=== PATIENT | male | born 1955 | race Caucasian/White ===

== ENCOUNTER 2017-10-10 12:41 | Inpatient (IN) | payer OTHER ==
[2017-10-10] MEDS ORDERED: Ondansetron INJ* 2 MG/ML VIAL ONE (12:52)
[2017-10-10] MEDS ORDERED: Ticagrelor* 90 MG TAB PO ONE ×2 (12:56→13:04)
[2017-10-10] MEDS ORDERED: Nitroglycerin TAB 0.4 MG* 0.4 MG TAB ONE (12:56)
[2017-10-10] MEDS ORDERED: Heparin for STEMI(*) 5,000 UNITS/ML 1 ML VIAL IV ONE ×2 (12:56→12:58)
[2017-10-10] MEDS ORDERED: Aspirin Low Dose CHEW TAB* 81 MG ONE (12:56)
[2017-10-10] MEDS ORDERED: nitroGLYCERIN DRIP* 0 MCG/0 ML BTL ONE (12:57)
[2017-10-10] MEDS ORDERED: NS 0.9% 1000 ML* 1,000 ML IV ONE (12:58)
[2017-10-10] MEDS ORDERED: Nitroglycerin TAB 0.4 MG* 0.4 MG TAB SL ONE (12:58)
[2017-10-10] MEDS ORDERED: Ondansetron INJ* 2 MG/ML VIAL IV ONE (12:58)
[2017-10-10] MEDS ORDERED: Aspirin Low Dose CHEW TAB* 81 MG PO ONE (12:58)
[2017-10-10] MEDS ORDERED: Morphine INJ* 4 MG/ML 1 ML CARPUJECT ONE (13:02)
[2017-10-10] MEDS ORDERED: Atropine SYRINGE* 0.1 MG/ML 10 ML SYRINGE (1 MG) IV PUSH ONE ×2 (13:04→13:22)
[2017-10-10] MEDS ORDERED: Morphine INJ* 4 MG/ML 1 ML CARPUJECT IV ONE (13:04)
[2017-10-10 13:05] LABS: Hematocrit 51 % (42-52); Hemoglobin 17.7 g/dl (14.0-18.0); Mean Corpuscular HGB Conc 35 g/dl (31-36); Mean Corpuscular Hemoglobin 32 pg (27-31); Mean Corpuscular Volume 90 fL (80-94); Mean Platelet Volume 7 um3 (7.4-10.4); Platelet Count 331 10^3/ul (150-450); Red Blood Count 5.59 10^6/ul (4.0-5.4); Red Cell Distribution Width 13 % (10.5-15); White Blood Count 9.6 10^3/ul (3.5-10.8)
--- OUTSIDE RECORDS SUMMARY | 2017-10-10 13:07 | XMS REPORT ---
:1955 External Reference #:[id number] Author Organization [facility] Address [address] [address] Phone [phone] Care Team Providers Name Role Phone Aimee Schaffer MD Primary Care Physician Unavailable Payers Type Date Identification Numbers Payment Provider Subscriber Commercial Effective: Policy Number: [employer] Clifford 2012 [id number] [employer] Group Number: [id number] [address] PayID: [id number] [place] [address] Medigap Part B Expires: 2012 Policy Number: [employer] [facility] [id number] Group Number: [id number] [address] PayID: [id number] [place] [address] Medigap Part B Expires: Policy Number: [employer] Insurance Clifford Linares 2012 [id number] Group Number: [id number] [address] PayID: [id number] [place] [address] Problems Date Description Provider Status Onset: 07/15/2011 Otitis media Marilu Rendon M.D. Active Onset: 07/15/2011 Insomnia Marilu Rendon M.D. Active Onset: 11/14/2012 Coronary arteriosclerosis Felisa Carvalho D.O. Active Onset: 01/16/2013 Acute bronchitis Eriberto Coyne M.D. Active Onset: 01/16/2013 Benign essential hypertension Eriberto Coyne M.D. Active Onset: 02/16/2014 Gout Marilu Rendon M.D. Active Onset: 02/16/2014 Chronic obstructive lung disease Marilu Rendon M.D. Active Onset: 09/12/2015 Disturbance in sleep behavior Luz Dykes MD Active Onset: 09/12/2015 Hypoxemia Luz Dykes MD Active Onset: 11/19/2015 Obstructive sleep apnea syndrome Jami Tracey DNP, RN, Active [employer] Family History Date Family Member(s) Problem(s) Comments General Heart Disease General Diabetes : (age 89 Father due to Accidental Years) Father Heart Disease Mother Stroke : (age 91 Mother due to Natural Years) Causes First Brother Cerebrovascular Accident CVA at age 65, (CVA) complete paralysis Social History Type Date Description Comments Marital Status Lives With Spouse and 16 year old daughter 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, 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 ETOH Use Drinks 1 Alcoholic Beverage 2-3x per week Per Day Smoking Patient is a former smoker 40-60 pk yr hx; quit in 1999 Recreational Drug Use Denies Drug Use Daily Caffeine Consumes on average 1 cup of regular coffee per day Exercise Type/Frequency 02/2015 Exercises regularly 30 min walking 4x's week General Hx Text Allergies, Adverse Reactions, Alerts Date Description Reaction Status Severity Comments 11/27/2010 NKDA active Medications Medication Date Status Form Strength Qnty SIG Indications Ordering Provider Prednisone 06/21 Active Tablets 10mg 30tab prn M10.00 s Andres Mckay Colchicine 06/18 Active Capsules 0.6mg 60cap take one by Z79.899 s mouth every Woody, day for 2 M.D. weeks, then take 1 as needed for gout attacks Allopurinol 06/18 Active Tablets 100mg 180ta take 2 tabs M10.00 bs daily Andres Mckay Mandibular 11/19 Active Device fabricate G47.33 Jami Advancement /2015 oral Kyung, Device appliance KARAN TAVAREZ, /mandibular [employer] advancement device for sleep apnea with needed adjustments. g47.33 Amlodipine 05/30 Active Tablets 5mg 90tab 1 by mouth Christian Besylate /2014 s every day Kaden Higgins M.D. Fish Oil 11/04 Active Capsules 1000mg 1 pills by Felisa Red mouth daily Edita Carvalho Aspir-[address] 81mg 100ta 1 po qd Unknown / bs Multivitamins Active Capsules 1 by mouth Unknown every day Atorvastatin Active Tablets 20mg 90tab Take 1 Aimee s Tablet By Cotton, Mouth At M.D. Bedtime Indomethacin 05/07 Hx Capsules 50mg 60cap 1 tab by M10.00 s mouth three Woody, - times a day M.D. 07/27 as needed for a severe attack of gout Medrol 05/01 Hx TBPK 4mg 1pack take as directed by Woody, - package M.D. 07/27 please fill as soon as possible Naproxen 06/30 Hx Tablets 375mg 60tab 1 by mouth M10. s twice a day Ranjeet, - M.D. 02/16 Naproxen 06/09 Hx Tablets 500mg 50tab 1 by mouth M10. s twice a day Ranjeet, - as needed M.D. 06/21 Prednisone 05/18 Hx Tablets 10mg 20tab 4 tabs by M10.00 s mouth on day , - 1, 3 tabs by M.D. 05/28 mouth on 2, 2 tabs by mouth on day 3, 1 tab by mouth on day 4 as needed for gout Fluticasone 02/12 Hx Suspension 50mcg/Act 16uni Inhale 2 R09.81 Aimee Propionate ts Sprays By Cotton, - Nasal Route M.D. 05/30 One Time Daily Benzonatate 10/31 Hx Capsules 200mg 30cap one by mouth J06.9 Praneeth s three times Dereck, [employer] - daily as 11/10 needed for cough Amlodipine 05/21 Hx Tablets 2.5mg 30tab 1 by mouth Christian Besylate s every day Kaden Higgins, - M.D. 05/30 Metoprolol 03/14 Hx Tablets ER 25mg 100ta Starting 414.01 Christian Succinate ER /2014 24HR bs 03/25/15 1/2 Kaden Higgins, - by mouth M.D. 07/17 every day for 1 week the D/C Symbicort 02/13 Hx Aerosol 160-4.5mc 10.2u inhale two 496 g/Act nits puffs by Cotton, - mouth twice M.D. 02/19 daily for chronic obstructive lung disease Proair HFA 02/13 Hx Aerosol 108(90Bas 1unit two puffs 496 e) s every 4 Cotton, - mcg/Act hours as M.D. 04/12 needed for wheeze and chest tightness. Allopurinol 04/04 Hx Tablets 300mg 90tab 1 PO qd 274.9 Aimee s Cotton, - M.D. 01/25 Zolpidem 04/04 Hx Tablets 5mg 30tab Take 1-2 274.9 Aimee Tar s tablets at Cotton, - night as M.D. 04/12 needed for sleep Hydrocodone-Ac 03/08 Hx Tablets 5-325mg 40tab 1 by mouth Lucien etaminophen s every 4-6 Ranjeet, - hours prn. M.D. 01/25 Naproxen 02/20 Hx Tablets 375mg 20tab take 1 s tablet twice Rendon, - daily for 10 M.D. 06/11 days. Hydrocodone-Ac 02/20 Hx Tablets 5-325mg 30tab Take 1 274.9 Marilu etaminophen s tablet every Rendon, - 8 hours as M.D. 06/11 needed for pain Symbicort 02/16 Hx Aerosol 160-4.5mc 10.2u inhale two 49 g/Act nits puffs by Rendon, - mouth twice M.D. 02/07 daily for chronic obstructive lung disease Proair HFA 02/16 Hx Aerosol 108(90Bas 1unit two puffs 496 e) s every 4 Rendon, - mcg/Act hours as M.D. 02/07 needed for wheeze and chest tightness. Acetaminophen- 02/16 Hx Tablets 300-30mg 15tab Take 1 274.9 Marilu Codeine #3 s tablet every Rendon, - 8hrs as M.D. 02/20 needed for pain Fluticasone 01/31 Hx Suspension 50mcg/Act 16gm 1 spray each 472.0 Marilu Propionate nostril Justice, - twice daily M.D. 01/25 Amoxicillin/Cl 12/14 Hx Tablets 875-125mg 20tab 1 tab by 466.0 Chayo avulanate /2013 s mouth 2x per Rosalio Clark - day M.D. 01/31 Clotrimazole/B 10/30 Hx Cream 1-0.05% 45gm apply 1 709.9 Mrailu etamethasone application Justice, Dipropionate - topically to M.D. 01/25 affected area 2 times for 10 days Metoprolol 10/30 Hx Tablets ER 25mg 90tab 1 by mouth 414.01 Aimee Succinate ER 24HR s every day Cotton, - M.D. 03/14 Amoxicillin/Po 01/16 Hx Tablets 875-125mg 20tab 1 po bid 466.0 Eriberto tassium /2012 s [place], Clavulanate - M.D. 04/28 Diazepam 12/29 Hx Tablets 2mg 15tab Take 09/28 to s 1 tablet as Varn, N.P. - needed for 09/27 travel anxiety every 8 hrs Robitussin ac 12/17 Hx Solution 120cc 1 - 2 tsp 465.9 Aimee /2012 every 4 Cotton, - hours as M.D. 12/31 needed for cough Fluticasone 12/17 Hx Suspension 50mcg/Act 1unit 2 spray each 465.9 Marilu Propionate s nostril Justice, - daily until M.D. 10/30 symptoms clear Nitroglycerin 11/11 Hx Solution 0.4mg/Spr 1unit as directed Felisa Lingual ay s for chest Deven, - pain D.O. 04/12 Nitrostat 11/04 Hx Tablets Sub 0.4mg 25tab one sl q5min s up to 3 Deven, - doses prn D.O. 11/11 chest pain /2011 Losartan 07/22 Hx Tablets 100mg 90tab 1/2 tablet Aimee Potassium s daily (on Cotton, - hold per Dr. Campos 05/21 Mauser 05/06) Nitroglycerin 07/15 Hx Tablets Sub 0.3mg Rendon, - M.D. 11/04 Amoxicillin/Cl 07/15 Hx Tablets 500-125mg 10tab Take 1 382.9 Marilu avulanate s tablet twice Rendon, Potassium - daily until M.D. 11/04 gone. Zolpidem 07/15 Hx Tablets 5mg 30tab Take 1-2 780.52 Marilu Tartrate s tablets at [place], - night as M.D. 01/16 needed for sleep Azithromycin 06/26 Hx Tablets 250mg 5tabs Take 2 486 tablets Rendon, - today and M.D. 07/15 then tablet daily until gone Colchicine 06/26 Hx Tablets 0.6mg 30tab 1 twice M10.9 Aimee s daily as Cotton, - needed for M.D. 02/16 /2016 Robitussin ac 12/03 Hx Solution 4Oz 1-2 tsp at bedtime as Emy, - needed M.D., [facility] 07/15 Flovent HFA 12/03 Hx Aerosol 44mcg/Act 1unit 2 puffs s twice daily Emy, - for 10 days M.D., [facility] 06/26 Colchicine 06/30 Hx Tablets 0.6mg 180ta 1 twice bs daily Emy - M.Rafa, [facility] 11/27 Cozaar Hx Tablets 100mg 100ta 1 po qd Unknown / bs - 07/22 Lipitor Hx Tablets 40mg 90tab 1/2 by Christian / s mouth every . Ronaldo, - night at M.D. 04/12 bedtime /2014 Azelastine HCL Hx Solution 0.1% 1-2 sprays Rae, (Nasal) /0000 in each Christian, - nostril 2 MD 02/16 times daily /2016 (pt states he is not using) Immunizations CPT Code Status Date Vaccine Lot # [id number] Given 02/07/2015 Pneumonia Vaccine [id number] Given 06/15/2013 Zoster (Zostavax) [id number] Given 07/15/2011 Tdap - Tetanus/Diptheria/Acellular Pertussis [id number] Vital Signs Date Vital Result Comment 09/28/2017 Weight 187.00 lb Heart Rate 67 /min BP Systolic Sitting 135 mmHg BP Diastolic Sitting 85 mmHg Respiratory Rate 14 /min 07/27/2017 Weight 180.00 lb Heart Rate 78 /min BP Systolic Sitting 132 mmHg BP Diastolic Sitting 78 mmHg O2 % BldC Oximetry 93 % 06/18/2017 Height 70 inches 5'10" Weight 187.00 lb Heart Rate 56 /min BP Systolic Sitting 140 mmHg BP Diastolic Sitting 88 mmHg Respiratory Rate 14 /min Pain Level 2 BMI (Body Mass Index) 26.8 kg/m2 05/07/2017 Height 70 inches 5'10" Weight 185.00 lb BP Systolic 124 mmHg BP Diastolic 70 mmHg Respiratory Rate 18 /min Pain Level 6 BMI (Body Mass Index) 26.5 kg/m2 04/30/2017 Heart Rate 62 /min Respiratory Rate 16 /min Body Temperature 98.4 F 04/09/2017 Height 70 inches 5'10" Weight 187.00 lb Heart Rate 76 /min BP Systolic 138 mmHg BP Diastolic 80 mmHg Respiratory Rate 16 /min Body Temperature 98.6 F BMI (Body Mass Index) 26.8 kg/m2 04/05/2017 Weight 153.25 lb Heart Rate 67 /min BP Systolic 128 mmHg BP Diastolic 70 mmHg Body Temperature 98.3 F O2 % BldC Oximetry 97 % 02/17/2017 Height 70 inches 5'10" Weight 186.75 lb w/ shoes Heart Rate 64 /min BP Systolic Sitting 128 mmHg LA reg cuff BP Diastolic Sitting 82 mmHg LA reg cuff BMI (Body Mass Index) 26.8 kg/m2 Ejection Fraction 55% stress test 03/14/15 02/16/2017 Height 70 inches 5'10" Weight 188.00 lb Heart Rate 74 /min BP Systolic Sitting 126 mmHg BP Diastolic Sitting 84 mmHg O2 % BldC Oximetry 95 % BMI (Body Mass Index) 27.0 kg/m2 07/24/2016 Height 71 inches 5'11" Weight 176.00 lb Pain Level 1 BMI (Body Mass Index) 24.5 kg/m2 06/30/2016 Height 71 inches 5'11" Weight 176.00 lb Pain Level 4 BMI (Body Mass Index) 24.5 kg/m2 06/09/2016 Height 71 inches 5'11" Weight 176.00 lb Pain Level 2 BMI (Body Mass Index) 24.5 kg/m2 05/18/2016 Weight 181.00 lb Heart Rate 56 /min BP Systolic Sitting 126 mmHg BP Diastolic Sitting 70 mmHg Respiratory Rate 15 /min Body Temperature 97.6 F O2 % BldC Oximetry 98 % 05/13/2016 Height 70 inches 5'10" Weight 180.00 lb Pain Level 0 BMI (Body Mass Index) 25.8 kg/m2 04/15/2016 Height 70 inches 5'10" Weight 180.00 lb Heart Rate 58 /min BP Systolic 136 mmHg BP Diastolic 83 mmHg BMI (Body Mass Index) 25.8 kg/m2 02/27/2016 Height 69.5 inches 5'9.50" Weight 185.50 lb with shoes Heart Rate 68 /min BP Systolic 130 mmHg LA reg cuff BP Diastolic 80 mmHg LA reg cuff BMI (Body Mass Index) 27.0 kg/m2 Ejection Fraction 55% Nem 03/14/15 02/13/2016 Height 69.5 inches 5'9.50" Weight 187.25 lb Heart Rate 72 /min BP Systolic Sitting 130 mmHg BP Diastolic Sitting 83 mmHg O2 % BldC Oximetry 97 % BMI (Body Mass Index) 27.3 kg/m2 11/19/2015 Weight 193.25 lb Heart Rate 72 /min BP Systolic Sitting 136 mmHg BP Diastolic Sitting 78 mmHg Respiratory Rate 18 /min O2 % BldC Oximetry 96 % 10/31/2015 Weight 193.25 lb Heart Rate 66 /min BP Systolic Sitting 130 mmHg BP Diastolic Sitting 76 mmHg Respiratory Rate 16 /min Body Temperature 97.7 F O2 % BldC Oximetry 98 % 09/24/2015 Height 70.25 inches 5'10.25" Weight 190.00 lb Heart Rate 70 /min BP Systolic Sitting 126 mmHg BP Diastolic Sitting 82 mmHg Respiratory Rate 15 /min Body Temperature 98.9 F O2 % BldC Oximetry 98 % BMI (Body Mass Index) 27.1 kg/m2 09/12/2015 Height 70.25 inches 5'10.25" Weight 189.25 lb Heart Rate 94 /min BP Systolic 144 mmHg BP Diastolic 94 mmHg Respiratory Rate 14 /min O2 % BldC Oximetry 98 % BMI (Body Mass Index) 27.0 kg/m2 Neck Circumference in inches 16.5 07/23/2015 Height 70.25 inches 5'10.25" Weight 185.50 lb with shoes Heart Rate 62 /min BP Systolic Sitting 130 mmHg LA reg cuff BP Diastolic Sitting 76 mmHg LA reg cuff Respiratory Rate 17 /min BMI (Body Mass Index) 26.4 kg/m2 Ejection Fraction 55% date 03/14/15 Nem 06/07/2015 Heart Rate 72 /min 67 BP Systolic 154 mmHg home cuff BP Diastolic 100 mmHg home cuff BP Systolic Sitting 152 mmHg LA reg cuff BP Diastolic Sitting 90 mmHg LA reg cuff 05/30/2015 Height 70.25 inches 5'10.25" Weight 184.25 lb w/ shoes Heart Rate 56 /min BP Systolic Sitting 150 mmHg LA, reg BP Diastolic Sitting 98 mmHg LA, reg BP Systolic Standing 140 mmHg home unit- finger LA BP Diastolic Standing 90 mmHg home unit- finger LA BP Systolic Lying Down 198 mmHg home unit BP Diastolic Lying Down 105 mmHg home unit BMI (Body Mass Index) 26.2 kg/m2 Ejection Fraction 55% 03/14/15 Stress ECHO-rest 05/21/2015 Height 70.25 inches 5'10.25" Weight 184.75 lb w/shoes Heart Rate 70 /min BP Systolic Sitting 152 mmHg LA reg cuff BP Diastolic Sitting 96 mmHg LA reg cuff BMI (Body Mass Index) 26.3 kg/m2 Ejection Fraction 55 stress echo 03/14/15 04/12/2015 Height 70.25 inches 5'10.25" Weight 185.00 lb Heart Rate 81 /min BP Systolic 125 mmHg BP Diastolic 80 mmHg Body Temperature 99.1 F BMI (Body Mass Index) 26.4 kg/m2 02/07/2015 Height 70.25 inches 5'10.25" Weight 183.75 lb Heart Rate 59 /min BP Systolic Sitting 126 mmHg BP Diastolic Sitting 82 mmHg O2 % BldC Oximetry 98 % BMI (Body Mass Index) 26.2 kg/m2 06/28/2014 Height 71 inches 5'11" Weight 180.00 lb Pain Level 1 BMI (Body Mass Index) 25.1 kg/m2 06/12/2014 Height 71 inches 5'11" Weight 180.00 lb Heart Rate 63 /min BMI (Body Mass Index) 25.1 kg/m2 04/24/2014 Height 71 inches 5'11" Weight 180.00 lb Heart Rate 60 /min BP Systolic 145 mmHg BP Diastolic 80 mmHg BMI (Body Mass Index) 25.1 kg/m2 04/04/2014 Heart Rate 64 /min BP Systolic Sitting 114 mmHg BP Diastolic Sitting 72 mmHg 03/22/2014 Height 71 inches 5'11" Weight 180.00 lb Heart Rate 68 /min BMI (Body Mass Index) 25.1 kg/m2 03/13/2014 Height 71 inches 5'11" Weight 180.00 lb Heart Rate 49 /min BMI (Body Mass Index) 25.1 kg/m2 03/08/2014 Height 71 inches 5'11" Weight 180.00 lb Heart Rate 49 /min BP Systolic 121 mmHg BP Diastolic 71 mmHg BMI (Body Mass Index) 25.1 kg/m2 02/16/2014 Height 70.25 inches 5'10.25" Weight 192.00 lb Heart Rate 68 /min BP Systolic Sitting 108 mmHg BP Diastolic Sitting 66 mmHg BMI (Body Mass Index) 27.4 kg/m2 01/31/2014 Weight 190.00 lb Heart Rate 58 /min BP Systolic Sitting 118 mmHg BP Diastolic Sitting 72 mmHg Body Temperature 97.3 F O2 % BldC Oximetry 98 % 12/14/2013 Height 70.25 inches 5'10.25" Weight 187.00 lb Heart Rate 52 /min BP Systolic Sitting 146 mmHg BP Diastolic Sitting 82 mmHg Body Temperature 97.9 F BMI (Body Mass Index) 26.6 kg/m2 10/30/2013 Height 70.25 inches 5'10.25" Weight 196.00 lb Heart Rate 92 /min BP Systolic Standing 160 mmHg BP Diastolic Standing 89 mmHg BMI (Body Mass Index) 27.9 kg/m2 04/28/2013 Height 70.25 inches 5'10.25" Weight 179.00 lb Heart Rate 72 /min BP Systolic Sitting 120 mmHg BP Diastolic Sitting 74 mmHg BMI (Body Mass Index) 25.5 kg/m2 01/16/2013 BP Systolic 158 mmHg BP Diastolic 92 mmHg 01/16/2013 Weight 184.00 lb Heart Rate 72 /min BP Systolic Sitting 181 mmHg left BP Diastolic Sitting 112 mmHg left BP Systolic Standing 169 mmHg right BP Diastolic Standing 102 mmHg right Body Temperature 98.5 F 11/14/2012 Height 70.25 inches 5'10.25" Weight 92.25 lb BP Systolic Sitting 120 mmHg BP Diastolic Sitting 786 mmHg BMI (Body Mass Index) 13.1 kg/m2 12/18/2011 Height 70.25 inches 5'10.25" Weight 187.00 lb Heart Rate 80 /min BP Systolic Sitting 130 mmHg BP Diastolic Sitting 70 mmHg Body Temperature 97.7 F BMI (Body Mass Index) 26.6 kg/m2 11/11/2011 Height 70.25 inches 5'10.25" Weight 193.00 lb Heart Rate 62 /min BP Systolic Sitting 140 mmHg L BP Diastolic Sitting 90 mmHg L BMI (Body Mass Index) 27.5 kg/m2 07/15/2011 Height 70.25 inches 5'10.25" Weight 182.25 lb Heart Rate 60 /min BP Systolic Sitting 120 mmHg BP Diastolic Sitting 80 mmHg BMI (Body Mass Index) 26.0 kg/m2 06/26/2011 Height 71 inches 5'11" Weight 187.00 lb Heart Rate 68 /min BP Systolic Sitting 140 mmHg BP Diastolic Sitting 78 mmHg Body Temperature 98.5 F BMI (Body Mass Index) 26.1 kg/m2 11/27/2010 Weight 193.00 lb Heart Rate 62 /min BP Systolic 140 mmHg BP Diastolic 90 mmHg Body Temperature 98.6 F Results Test Date Test Result H/L Range Note Hla B27 08/06/2017 Hla B27 Negative 1 Hla B27 Interp See Comment 2 Laboratory test finding 08/06/2017 Uric Acid 6.6 mg/dL 4.4-7.6 3 C Reactive Protein < 1.00 mg/L < 5.00 4 CBC Auto Diff 08/06/2017 White Blood Count 6.3 10^3/uL 3.5-10.8 Red Blood Count 5.09 10^6/uL 4.0-5.4 Hemoglobin 15.8 g/dL 14.0-18.0 Hematocrit 47 % 42-52 Mean Corpuscular Volume 92 fL 80-94 Mean Corpuscular Hemoglobin 31 pg 27-31 Mean Corpuscular HGB Conc 34 g/dL 31-36 Red Cell Distribution Width 13 % 10.5-15 Platelet Count 272 10^3/uL 150-450 Mean Platelet Volume 7 um3 Low 7.4-10.4 Abs Neutrophils 3.1 10^3/uL 1.5-7.7 Abs Lymphocytes 2.0 10^3/uL 1.0-4.8 Abs Monocytes 0.7 10^3/uL 0-0.8 Abs Eosinophils 0.4 10^3/uL 0-0.6 Abs Basophils 0 10^3/uL 0-0.2 Abs Nucleated RBC 0 10^3/uL Granulocyte % 50.0 % 38-83 Lymphocyte % 31.4 % 25-47 Monocyte % 11.8 % High 1-9 Eosinophil % 6.2 % High 0-6 Basophil % 0.6 % 0-2 Nucleated Red Blood Cells % 0.1 Comp Metabolic Panel 08/06/2017 Sodium 139 mmol/L 133-145 Potassium 4.1 mmol/L 3.5-5.0 Chloride 103 mmol/L 101-111 Co2 Carbon Dioxide 31 mmol/L 22-32 Anion Gap 5 mmol/L 2-11 Glucose 83 mg/dL 70-100 Blood Urea Nitrogen 15 mg/dL 6-24 Creatinine 0.98 mg/dL 0.67-1.17 BUN/Creatinine Ratio 15.3 8-20 Calcium 9.2 mg/dL 8.6-10.3 Total Protein 6.3 g/dL Low 6.4-8.9 Albumin 4.1 g/dL 3.2-5.2 Globulin 2.2 g/dL 2-4 Albumin/Globulin Ratio 1.9 1-3 Total Bilirubin 0.40 mg/dL 0.2-1.0 Alkaline Phosphatase 85 U/L 34-104 Alt 35 U/L 7-52 Ast 24 U/L 13-39 Egfr Non- 77.0 >60 Egfr 99.0 >60 5 Laboratory test finding 06/18/2017 Uric Acid 7.9 mg/dL High 4.4-7.6 6 C Reactive Protein 1.77 mg/L < 5.00 7 Erythrocyte Sed Rate 9 mm/Hr 0-20 8 Laboratory test finding 06/18/2017 Rheumatoid Factor <15 IU/mL <15 9 CBC Auto Diff 06/18/2017 White Blood Count 6.2 10^3/uL 3.5-10.8 Red Blood Count 5.13 10^6/uL 4.0-5.4 Hemoglobin 16.0 g/dL 14.0-18.0 Hematocrit 47 % 42-52 Mean Corpuscular Volume 92 fL 80-94 Mean Corpuscular Hemoglobin 31 pg 27-31 Mean Corpuscular HGB Conc 34 g/dL 31-36 Red Cell Distribution Width 14 % 10.5-15 Platelet Count 252 10^3/uL 150-450 Mean Platelet Volume 7 um3 Low 7.4-10.4 Abs Neutrophils 3.4 10^3/uL 1.5-7.7 Abs Lymphocytes 1.6 10^3/uL 1.0-4.8 Abs Monocytes 0.8 10^3/uL 0-0.8 Abs Eosinophils 0.3 10^3/uL 0-0.6 Abs Basophils 0 10^3/uL 0-0.2 Abs Nucleated RBC 0 10^3/uL Granulocyte % 55.1 % 38-83 Lymphocyte % 26.4 % 25-47 Monocyte % 13.2 % High 1-9 Eosinophil % 4.6 % 0-6 Basophil % 0.7 % 0-2 Nucleated Red Blood Cells % 0.1 Comp Metabolic Panel 01/25/2017 Sodium 137 mmol/L 133-145 Potassium 4.1 mmol/L 3.5-5.0 Chloride 105 mmol/L 101-111 Co2 Carbon Dioxide 26 mmol/L 22-32 Anion Gap 6 mmol/L 2-11 Glucose 103 mg/dL High 70-100 Blood Urea Nitrogen 21 mg/dL 6-24 Creatinine 1.06 mg/dL 0.67-1.17 BUN/Creatinine Ratio 19.8 8-20 Calcium 9.3 mg/dL 8.6-10.3 Total Protein 6.2 g/dL Low 6.4-8.9 Albumin 4.0 g/dL 3.2-5.2 Globulin 2.2 g/dL 2-4 Albumin/Globulin Ratio 1.8 1-3 Total Bilirubin 0.50 mg/dL 0.2-1.0 Alkaline Phosphatase 81 U/L 34-104 Alt 26 U/L 7-52 Ast 18 U/L 13-39 Egfr Non- 70.6 >60 Egfr 90.7 >60 10 Lipid Profile (Trig/Chol/HDL) 01/25/2017 Triglycerides 149 mg/dL 11 Cholesterol 147 mg/dL 12 HDL Cholesterol 43.0 mg/dL 13 LDL Cholesterol 74 mg/dL 14 Lipid Profile (Trig/Chol/HDL) 02/06/2016 Triglycerides 148 mg/dL 15 Cholesterol 158 mg/dL 16 HDL Cholesterol 48.6 mg/dL 17 LDL Cholesterol 80 mg/dL 18 Comp Metabolic Panel 02/06/2016 Sodium 137 mmol/L 133-145 Potassium 4.5 mmol/L 3.5-5.0 Chloride 105 mmol/L 101-111 Co2 Carbon Dioxide 26 mmol/L 22-32 Anion Gap 6 mmol/L 2-11 Glucose 105 mg/dL High 70-100 Blood Urea Nitrogen 18 mg/dL 6-24 Creatinine 1.15 mg/dL 0.67-1.17 BUN/Creatinine Ratio 15.7 8-20 Calcium 9.3 mg/dL 8.6-10.3 Total Protein 6.3 g/dL Low 6.4-8.9 Albumin 4.2 g/dL 3.2-5.2 Globulin 2.1 g/dL 2-4 Albumin/Globulin Ratio 2.0 1-3 Total Bilirubin 0.50 mg/dL 0.2-1.0 Alkaline Phosphatase 82 U/L 34-104 Alt 33 U/L 7-52 Ast 26 U/L 13-39 Egfr Non- 64.4 >60 Egfr 82.9 >60 19 Laboratory test finding 05/29/2015 Surgical Pathology SEE RESULT BELOW 20 CBC Auto Diff 02/07/2015 White Blood Count 6.0 10^3/uL 4.8-10.8 Red Blood Count 5.00 10^6/uL 4.0-5.4 Hemoglobin 16.3 g/dL 14.0-18.0 Hematocrit 47 % 42-52 Mean Corpuscular Volume 93 fL 80-94 Mean Corpuscular Hemoglobin 33 pg High 27-31 Mean Corpuscular HGB Conc 35 g/dL 31-36 Red Cell Distribution Width 13 % 10.5-15 Platelet Count 240 10^3/uL 150-450 Mean Platelet Volume 8 um3 7.4-10.4 Abs Neutrophils 2.8 10^3/uL 1.5-7.7 Abs Lymphocytes 2.1 10^3/uL 1.0-4.8 Abs Monocytes 0.8 10^3/uL 0-0.8 Abs Eosinophils 0.2 10^3/uL 0-0.6 Abs Basophils 0 10^3/uL 0-0.2 Abs Nucleated RBC 0 10^3/uL Granulocyte % 47.0 % 38-83 Lymphocyte % 35.6 % 25-47 Monocyte % 12.7 % High 1-9 Eosinophil % 3.9 % 0-6 Basophil % 0.8 % 0-2 Nucleated Red Blood Cells % 0 Laboratory test finding 02/07/2015 TSH (Thyroid Stim Horm) 2.27 ?IU/mL 0.34-5.60 Erythrocyte Sed Rate 6 mm/Hr 0-20 Lipid Profile (Trig/Chol/HDL) 01/25/2015 Triglycerides 117 mg/dL 21, 22 Cholesterol 122 mg/dL 21, 23 HDL Cholesterol 47.9 mg/dL 21, 24 LDL Cholesterol 51 mg/dL 21, 25 Comp Metabolic Panel 01/25/2015 Sodium 140 mmol/L 133-145 21 Potassium 4.3 mmol/L 3.5-5.0 21 Chloride 106 mmol/L 101-111 21 Co2 Carbon Dioxide 28 mmol/L 22-32 21 Anion Gap 6 mmol/L 2-11 21 Glucose 84 mg/dL 70-100 21 Blood Urea Nitrogen 18 mg/dL 6-24 21 Creatinine 1.13 mg/dL 0.67-1.17 21 BUN/Creatinine Ratio 15.9 8-20 21 Calcium 9.3 mg/dL 8.6-10.3 21 Total Protein 6.1 g/dL Low 6.4-8.9 21 Albumin 4.2 g/dL 3.2-5.2 21 Globulin 1.9 g/dL Low 2-4 21 Albumin/Globulin Ratio 2.2 1-3 21 Total Bilirubin 0.70 mg/dL 0.2-1.0 21 Alkaline Phosphatase 77 U/L 34-104 21 Alt 49 U/L 7-52 21 Ast 28 U/L 13-39 21 Egfr Non- 66.0 >60 21 Egfr 84.8 >60 21, 26 Laboratory test finding 01/25/2015 Uric Acid 7.0 mg/dL 4.4-7.6 21, 27 Laboratory test finding 03/22/2014 Uric Acid 7.4 mg/dL 4.4-7.6 Basic Metabolic Panel 03/22/2014 Sodium 138 mmol/L 133-145 Potassium 4.0 mmol/L 3.7-5.6 Chloride 105 mmol/L 101-111 Co2 Carbon Dioxide 24 mmol/L 22-32 Anion Gap 9 mmol/L 2-11 Glucose 145 mg/dL High 70-100 Blood Urea Nitrogen 21 mg/dL 6-24 Creatinine 1.05 mg/dL 0.67-1.17 BUN/Creatinine Ratio 20.0 8-20 Calcium 9.3 mg/dL 8.6-10.3 Egfr Non- 71.8 >60 Egfr 92.3 >60 28 Laboratory test finding 02/16/2014 Alpha 1 Antitrypsin A1a 134 mg/dL 100 - 190 29 Lipid Profile 10/25/2013 Triglycerides 143 mg/dL 40-200 (Trig/Chol/HDL) Cholesterol 168 mg/dL Less than 200 HDL Cholesterol 51 mg/dL 40-60 30 Cholesterol/HDL Ratio 3.3 Average 1-4.44 LDL Cholesterol 88.4 Less Than 100 31 Laboratory test finding 10/25/2013 Alt 43 U/L 14-54 32 Ast 27 U/L 12-42 33 Lipid Profile (Trig/Chol/HDL) 04/18/2013 Triglycerides 140 mg/dL 40-200 Cholesterol 128 mg/dL Less than 200 HDL Cholesterol 42 mg/dL 40-60 34 Cholesterol/HDL Ratio 3.1 Average 1-4.44 LDL Cholesterol 58.0 Less Than 100 35 Triglycerides 140 mg/dL 40-200 Cholesterol 128 mg/dL Less than 200 HDL Cholesterol 42 mg/dL 40-60 36 Cholesterol/HDL Ratio 3.1 Average 1-4.44 LDL Cholesterol 58.0 Less Than 100 37 Laboratory test finding 04/18/2013 Glucose 99 mg/dL 70-100 38 Basic Metabolic Panel 04/18/2013 Sodium 136 mmol/L 133-145 Potassium 3.8 mmol/L 3.5-5.0 Chloride 104 mmol/L 101-111 Co2 Carbon Dioxide 27.0 mmol/L 22-32 Anion Gap 5.0 mmol/L 2-11 Blood Urea Nitrogen 14 mg/dL 6-24 Creatinine 1.10 mg/dL 0.50-1.40 BUN/Creatinine Ratio 12.7 8-20 Calcium 9.3 mg/dL 8.1-9.9 Egfr Non- 68.3 >60 Egfr 87.8 >60 39 Laboratory test finding 04/18/2013 Uric Acid 7.5 mg/dL High 2.6-7.2 40 Laboratory test finding 08/11/2012 Ast 32 U/L 12-42 Alt 54 U/L 14-54 Lipid Profile (Trig/Chol/HDL) 08/11/2012 Triglycerides 109 mg/dL 40-200 Cholesterol 143 mg/dL Less than 200 HDL Cholesterol 43 mg/dL 40-60 41 Cholesterol/HDL Ratio 3.3 AVERAGE 1-4.44 LDL Cholesterol 78.2 mg/dL Less Than 100 42 CBC Auto Diff 06/26/2011 White Blood Count 7.9 CUMM 4.8-10.8 Red Cell Count 4.96 CUMM 4.6-6.2 Hemoglobin 15.8 g/dL 14.0-18.0 Hematocrit 45 % 42-52 Mean Corpuscular Volume 91 um3 80-94 Mean Corpuscular Hemoglob 32 pg High 27-31 Mean Corpuscular HGB Cone 35 g/dL 32-36 Redcell Distribution WDTH 12 % 10.5-15 Platelet Count 277 CUMM 150-450 Mean Platelet Volume 7.1 um3 Low 7.4-10.4 Gran % 68.4 % 38-83 Lymph % 21.6 % Low 25-47 Mononuclear % 6.7 % 1-9 Eosinophil % 2.6 % 0-6 Basophil % 0.7 % 0-2 Abs Lymphs 1.7 1.0-4.8 Abs Mononuclear 0.5 0-0.8 Absolute Neutrophil Count 5.4 1.5-7.7 Abs Eosinophils 0.2 0-0.6 Abs Basophils 0.1 0-0.2 Comp Metabolic Panel 06/26/2011 Sodium 138 mmol/L 135-145 Potassium 4.3 mmol/L 3.5-5.0 Chloride 105 mmol/L 101-111 Co2 (Carbon Dioxide) 29.0 mmol/L 22-32 Anion Gap 4.0 mmol/L 2-11 43 Glucose 97 mg/dL 70-100 BUN 13 mg/dL 6-24 Creatinine 1.0 mg/dL 0.50-1.40 One Over Creatinine 1.00 BUN/Creatinine Ratio 13.0 8-20 Calcium 8.9 mg/dL 8.1-9.9 Total Protein 6.0 GM/DL Low 6.2-8.1 Albumin 4.1 GM/DL 3.6-5.4 Globulin 1.9 GM/DL Low 2-4 Albumin/Globulin Ratio 2.2 1-3 Bilirubin Total 0.8 mg/dL 0.4-1.5 44 Alkaline Phosphatase 78 U/L 39-117 Alt (SGPT) 29 U/L 17-63 Ast (Sgot) 24 U/L 12-42 eGFR Non- 76.7 > 60 eGFR 98.7 > 60 45 Lipid Profile (Trig/Chol/HDL) 06/26/2011 Triglyceride 146 mg/dL 40-200 Cholesterol 150 mg/dL Less Than 200 46 High Density Lipoprotein 39 mg/dL Low 40-60 47 Cholesterol/HDL Ratio 3.85 AVERAGE 1-4.97 Low Density Lipoprotein 82 mg/dL Less Than 100 48 Laboratory test finding 06/26/2011 Uric Acid 6.5 mg/dL 2.6-7.2 1 REFERENCE VALUE Not Applicable 2 RESULT: HLA-B27 antigen was not detected. ADDITIONAL INFORMATION Method: Flow Cytometry Performing Laboratory CLIA# [id number] Test Performed by: [address] [address] 3 Please check this month 4 Acute inflammation: >10.00 5 Because ethnic data is not always readily available, this report includes an eGFR for both -Americans and non- Americans. The National Kidney Disease Education Program (NKDEP) does not endorse the use of the MDRD equation for patients that are not between the ages of 18 and 70, are , have extremes of body size, muscle mass, or nutritional status, or are non- or non-. According to the National Kidney Foundation, irrespective of diagnosis, the stage of the disease is based on the level of kidney function: Stage Description GFR(mL/min/1.73 m(2)) 1 Kidney damage with normal or decreased GFR 90 2 Kidney damage with mild decrease in GFR 60-89 3 Moderate decrease in GFR 30-59 4 Severe decrease in GFR 15-29 5 Kidney failure <15 (or dialysis) 6 Please check today 7 Acute inflammation: >10.00 8 Please check today 9 Test Performed by: [address] [address] 10 Because ethnic data is not always readily available, this report includes an eGFR for both -Americans and non- Americans. The National Kidney Disease Education Program (NKDEP) does not endorse the use of the MDRD equation for patients that are not between the ages of 18 and 70, are , have extremes of body size, muscle mass, or nutritional status, or are non- or non-. According to the National Kidney Foundation, irrespective of diagnosis, the stage of the disease is based on the level of kidney function: Stage Description GFR(mL/min/1.73 m(2)) 1 Kidney damage with normal or decreased GFR 90 2 Kidney damage with mild decrease in GFR 60-89 3 Moderate decrease in GFR 30-59 4 Severe decrease in GFR 15-29 5 Kidney failure <15 (or dialysis) 11 Desirable <150 Borderline high 150-199 High 200-499 Very High >500 12 Desirable <200 Borderline high 200-239 High >239 13 Low <40 Desirable: 40-60 High: >60 14 Desirable: <100 mg/dL Near Optimal: 100-129 mg/dL Borderline High: 130-159 mg/dL High: 160-189 mg/dL Very High: >189 mg/dL 15 Desirable <150 Borderline high 150-199 High 200-499 Very High >500 16 Desirable <200 Borderline high 200-239 High >239 17 Low <40 Desirable: 40-60 High: >60 18 Desirable: <100 mg/dL Near Optimal: 100-129 mg/dL Borderline High: 130-159 mg/dL High: 160-189 mg/dL Very High: >189 mg/dL 19 Because ethnic data is not always readily available, this report includes an eGFR for both -Americans and non- Americans. The National Kidney Disease Education Program (NKDEP) does not endorse the use of the MDRD equation for patients that are not between the ages of 18 and 70, are , have extremes of body size, muscle mass, or nutritional status, or are non- or non-. According to the National Kidney Foundation, irrespective of diagnosis, the stage of the disease is based on the level of kidney function: Stage Description GFR(mL/min/1.73 m(2)) 1 Kidney damage with normal or decreased GFR 90 2 Kidney damage with mild decrease in GFR 60-89 3 Moderate decrease in GFR 30-59 4 Severe decrease in GFR 15-29 5 Kidney failure <15 (or dialysis) 20 SEE RESULT BELOW Name: PAYAM FRANKLIN : [address]: Alexandro Rodriguez MD Acct: [id number] Unit: [id number] AGE: 60 Location: ENDO Re05/29/15 SEX: M Status: REG REF SPEC: [id number] RICKI: 05/29/15- SUBM DR: Alexandro Rodriguez MD REQ: [id number] RECD: 05/29/15-1254 STATUS: MAUREEN LANDAVERDE DR: Aimee Schaffer MD _ ORDERED: LEVEL IV/2 FINAL DIAGNOSIS 1. Colon, proximal transverse, biopsy: -- Tubular adenoma. -- No high grade dysplasia or malignancy. 2. Colon, distal transverse, biopsy: -- Tubular adenoma. -- No high grade dysplasia or malignancy. CLINICAL HISTORY Screening colonoscopy POST-OPERATIVE DIAGNOSIS Screening colonoscopy into terminal ileum, prep good - 2 polyps removed, sigmoid diverticulosis GROSS DESCRIPTION 1. The specimen is received in formalin labeled, Proximal Transverse Colon Polyp, and consists of a 0.6 x 0.3 x 0.2 cm lerma-pink irregular to polypoid soft tissue fragment, which is entirely submitted in one cassette. 2. The specimen is received in formalin labeled, Distal Transverse Colon Polyp, and consists of a 1.1 x 0.3 x 0.2 cm lerma-pink irregular to polypoid soft tissue fragment which is entirely submitted in one cassette. Signed (signature on file) Catherine Montiel MD 12/09 1054 END OF REPORT * ML=Testing performed at Main Lab DEPARTMENT OF PATHOLOGY, [address] [place] [address] Joesph Bell M.D. Director [facility] # [id number] 21 FASTING 12 HOUR DUE IN PRIOR TO NEXT VISIT 22 Desirable <150 Borderline high 150-199 High 200-499 Very High >500 23 Desirable <200 Borderline high 200-239 High >239 24 Low <40 Desirable: 40-60 High: >60 25 Desirable: <100 mg/dL Near Optimal: 100-129 mg/dL Borderline High: 130-159 mg/dL High: 160-189 mg/dL Very High: >189 mg/dL 26 Because ethnic data is not always readily available, this report includes an eGFR for both -Americans and non- Americans. The National Kidney Disease Education Program (NKDEP) does not endorse the use of the MDRD equation for patients that are not between the ages of 18 and 70, are , have extremes of body size, muscle mass, or nutritional status, or are non- or non-. According to the National Kidney Foundation, irrespective of diagnosis, the stage of the disease is based on the level of kidney function: Stage Description GFR(mL/min/1.73 m(2)) 1 Kidney damage with normal or decreased GFR 90 2 Kidney damage with mild decrease in GFR 60-89 3 Moderate decrease in GFR 30-59 4 Severe decrease in GFR 15-29 5 Kidney failure <15 (or dialysis) 27 FASTING 12 HOUR DUE IN PRIOR TO NEXT VISIT 28 Because ethnic data is not always readily available, this report includes an eGFR for both -Americans and non- Americans. The National Kidney Disease Education Program (NKDEP) does not endorse the use of the MDRD equation for patients that are not between the ages of 18 and 70, are , have extremes of body size, muscle mass, or nutritional status, or are non- or non-. According to the National Kidney Foundation, irrespective of diagnosis, the stage of the disease is based on the level of kidney function: Stage Description GFR(mL/min/1.73 m(2)) 1 Kidney damage with normal or decreased GFR 90 2 Kidney damage with mild decrease in GFR 60-89 3 Moderate decrease in GFR 30-59 4 Severe decrease in GFR 15-29 5 Kidney failure <15 (or dialysis) 29 Test Performed by: [facility] [place] [address] Judo Instructor: Kadeem Brown III, M.D. 30 HDL Interpretation: Undesirable: High Risk: Less than 40 mg/dL Desirable: Low Risk: Greater than 60 mg/dL 31 LDL Interpretation: Low Risk Optimal Level: LDL Less than 100 mg/dL Near or Above Optimal: LDL 100-129 mg/dL Borderline High Risk: LDL 130-159 mg/dL High Risk: LDL 160-189 mg/dL Very High Risk: LDL Greater than 189 mg/dL 32 PT IS FASTING 33 PT IS FASTING 34 HDL Interpretation: Undesirable: High Risk: Less than 40 mg/dL Desirable: Low Risk: Greater than 60 mg/dL 35 LDL Interpretation: Low Risk Optimal Level: LDL Less than 100 mg/dL Near or Above Optimal: LDL 100-129 mg/dL Borderline High Risk: LDL 130-159 mg/dL High Risk: LDL 160-189 mg/dL Very High Risk: LDL Greater than 189 mg/dL 36 HDL Interpretation: Undesirable: High Risk: Less than 40 mg/dL Desirable: Low Risk: Greater than 60 mg/dL 37 LDL Interpretation: Low Risk Optimal Level: LDL Less than 100 mg/dL Near or Above Optimal: LDL 100-129 mg/dL Borderline High Risk: LDL 130-159 mg/dL High Risk: LDL 160-189 mg/dL Very High Risk: LDL Greater than 189 mg/dL 38 FASTING 12 HOUR 39 Because ethnic data is not always readily available, this report includes an eGFR for both -Americans and non- Americans. The National Kidney Disease Education Program (NKDEP) does not endorse the use of the MDRD equation for patients that are not between the ages of 18 and 70, are , have extremes of body size, muscle mass, or nutritional status, or are non- or non-. According to the National Kidney Foundation, irrespective of diagnosis, the stage of the disease is based on the level of kidney function: Stage Description GFR(mL/min/1.73 m(2)) 1 Kidney damage with normal or decreased GFR 90 2 Kidney damage with mild decrease in GFR 60-89 3 Moderate decrease in GFR 30-59 4 Severe decrease in GFR 15-29 5 Kidney failure <15 (or dialysis) 40 FASTING 12 HOUR 41 HDL Interpretation: Undesirable: High Risk: Less than 40 MG/DL Desirable: Low Risk: Greater than 60 MG/DL 42 LDL Interpretation: Low Risk Optimal Level: LDL Less than 100 MG/DL Near or Above Optimal: LDL 100-129 MG/DL Borderline High Risk: LDL 130-159 MG/DL High Risk: LDL 160-189 MG/DL Very High Risk: LDL Greater than 189 MG/DL 43 Anion gap measurement may be of limited value in the presence of any alkalosis, especially in a combined acid base disorder. . 44 A metabolite of Naproxen, O-desmethylnaproxen, has been shown to interfere with the [place] method for measuring total bilirubin. Samples from patients who have taken Naproxen have shown spurious elevation in total bilirubin levels. 45 Because ethnic data is not always readily available, this report includes an eGFR for both -Americans and non- Americans. The National Kidney Disease Education Program (NKDEP) does not endorse the use of the MDRD equation for patients that are not between the ages of 18 and 70, are , have extremes of body size, muscle mass, or nutritional status, or are non- or non-. According to the National Kidney Foundation, irrespective of diagnosis, the stage of the disease is based on the level of kidney function: Stage Description GFR(mL/min/1.73 m(2)) 1 Kidney damage with normal or decreased GFR 90 2 Kidney damage with mild decrease in GFR 60-89 3 Moderate decrease in GFR 30-59 4 Severe decrease in GFR 15-29 5 Kidney failure <15 (or dialysis) 46 CHOLESTEROL INTERPRETATION: Desirable: Less than 200 MG/DL Borderline-High Risk: 200-239 MG/DL High-Risk: 240 MG/DL and over 47 HDL INTERPRETATION: Undesirable: High Risk: Less than 40 MG/DL Desirable: Low Risk: Greater than 60 MG/DL 48 LDL INTERPRETATION: Low Risk Optimal Level: LDL Less than 100 MG/DL Near or Above Optimal: LDL 100-129 MG/DL Borderline High Risk: LDL 130-159 MG/DL High Risk: LDL 160-189 MG/DL Very High Risk: LDL Greater than 189 MG/DL Procedures Date CPT Code Description Status 02/17/2017 21918 EKG Tracing & Interpretation Completed 02/16/2017 25725 Admin & Interp Of Health Risk Assessment w/ Patient Completed 02/27/2016 99531 EKG Tracing & Interpretation Completed 10/29/2015 02605 Sleep Study Unattended,HRT Rate,Oxygen Sat,Resp Completed Effort/Airflow 09/24/2015 12202 Remove Impacted Cerumen Completed 07/23/2015 57090 EKG Tracing & Interpretation Completed 05/29/2015 Colonoscopy Completed 05/21/2015 81768 EKG Tracing & Interpretation Completed 2015 60658 ECHO Stress Test Incl Perf Contiuous ekg Monitoring Completed W/Phys Superv 02/12/2015 52957 Pulmonary Function><Bronchodil Completed 02/12/2015 67132 Plethysmography Determination Lung Volumes & Per Completed Airway Resist 02/12/2015 54806 Diffusing Capacity Completed 03/08/2014 26020 Short Leg Cast Completed 02/01/2014 81856 Pulmonary Function><Bronchodilator Completed 11/14/2012 31439 EKG Tracing & Interpretation Completed 11/11/2011 49963 EKG Tracing & Interpretation Completed 10/01/2010 17620 ECHO Stress Test Incl Perf Contiuous ekg Monitoring Completed W/Phys Superv 07/18/2009 24132 ECHO Stress Test Incl Perf Contiuous ekg Monitoring Completed W/Phys Superv 01/31/2009 59775 EKG Tracing & Interpretation Completed 10/28/2006 33350 ECHO/Stress Completed 10/28/2006 51194 Stress Test Completed 10/28/2006 94312 Stress Test Completed 09/30/2005 27389 ECHO/Stress Completed 09/30/2005 44475 Stress Test Completed 02/02/2005 Colonoscopy Completed Encounters Type Date Location Provider CPT E/M Dx Office Visit 07/27/2017 [facility] Robert Mckay M.D. 56502 M10.00 4:00p Of [facility] Z79.899 M25.571 Office Visit 06/18/2017 10:00a [facility] Robert Mckay 37347 M10.00 Of Stella Campos Z79.899 M25.571 M20.22 Office Visit 05/07/2017 10:30a [facility] Lucien Pollack M.D. 15640 M10.00 Of [facility] Office Visit 04/30/2017 1:00p [facility] Melquiades Guy, 12159 R10.31 Of [facility] Office Visit 04/09/2017 1:30p [facility] Melquiades Guy, 68092 R10.31 Of [facility] Office Visit 04/05/2017 4:40p [facility] Internal Medicine Aimee Schaffer 13746 R10.31 - Mirian Campos Office Visit 02/17/2017 10:00a [facility] Christian Higgins, 77780 M10.00 Andres I25.10 E78.00 I10 Office Visit 02/16/2017 2:40p [facility] Internal Medicine Aimee Schaffer 60962 Z00.00 - Mirian Campos Office Visit 07/24/2016 1:10p [facility] Lucien Pollack M.D. 39769 M10.00 Of [facility] M20.22 Office Visit 06/30/2016 10:15a [facility] Lucien Pollack M.D. 54096 M10.00 Of [facility] Office Visit 06/09/2016 2:30p [facility] Lucien Pollack M.D. 41421 M10.00 Of [facility] Office Visit 05/18/2016 4:40p [facility] Internal Medicine Aimee Schaffer, 17225 M10.00 - Mirian Campos Office Visit 05/13/2016 9:45a [facility] Tanner Estrada M.D. 15342 M76.52 Of [facility] M65.812 Office Visit 04/15/2016 9:30a [facility] Of Tanner Estrada M.D. 78902 M76.52 [facility] Office Visit 02/27/2016 2:00p [facility] Christian Higgins, 67556 R94.31 MCandido I25.10 E78.0 I10 Office Visit 02/13/2016 2:40p [facility] Internal Medicine Aimee Schaffer 90936 Z00.00 - Mirian Campos R09.81 D22.9 Office Visit 11/19/2015 8:15a [facility] Jami Tracey, 26803 G47.33 Services Of [facility] CORBY RN, [facility]- R09.02 Office Visit 10/31/2015 10:00a [facility] [place] [address] J06.9 - Mirian Office Visit 09/24/2015 2:20p [facility] Internal Medicine Aimee Schaffer 74781 H61.22 - Mirian Campos Office Visit 09/12/2015 2:30p [facility] [place] [address] G47.9 Services [facility] R09.02 Office Visit 07/23/2015 1:00p [facility] Christian Higgins, 91344 I25.10 M.[place] I10 E78.5 G47.39 Office Visit 06/07/2015 2:15p [facility] [address] 401.9 414.01 272.4 427.81 780.59 Office Visit 05/30/2015 1:00p [facility] SUNDAR Silva 23614 401.9 414.01 272.4 427.81 Office Visit 05/21/2015 10:00a [facility] Christian Higgins 82514 786.09 M.[place] 414.01 272.4 780.79 401.9 Office Visit 04/12/2015 3:40p [facility] Internal Medicine Aimee Schaffer 69131 786.09 - [place] M.[place] Office Visit 02/07/2015 1:40p [facility] Internal Medicine Aimee Schaffer, 76447 V70.0 - [place] M.Rafa 496 401.1 414.01 V76.51 780.79 v03.82 Office Visit 06/28/2014 4:00p [facility] Lucien Pollack M.D. 96633 845.00 Of [facility] Office Visit 06/12/2014 1:30p [facility] Lucien Pollack M.D. 84721 845.00 Of [facility] Office Visit 04/24/2014 2:45p [facility] Lucien Pollack M.D. 22645 845.00 Of [facility] Office Visit 04/04/2014 11:00a [facility] Internal Medicine Aimee Schaffer 26270 274.9 - Mirian Campos 272.4 Office Visit 03/22/2014 2:45p [facility] Of Lucien Pollack 21556 845.00 C.MAlvin Campos Office Visit 03/13/2014 3:45p [facility] Of Lucien Pollack 91192 274.9 C.MAlvin [place] Office Visit 03/08/2014 10:00a [facility] Of Lucien Pollack 40378 845.00 C.MAlvin Campos Office Visit 02/16/2014 2:40p [facility] Internal Medicine Marilu Rendon M.D. 61257 274.9 - [place] 496 719.47 Office Visit 01/31/2014 10:00a [facility] Internal Medicine Rc Rendon M.D. 32028 786.2 [place] 380.4 401.1 414.01 472.0 Office Visit 12/14/2013 1:00p [facility] Internal Medicine Chayo Clark M.D. 10274 466.0 - [place] Office Visit 10/30/2013 1:40p [facility] Internal Medicine Marilu Rendon M.D. 22675 709.9 - [place] 401.1 414.01 Office Visit 04/28/2013 3:00p [facility] Internal Medicine Rc Rendon M.D. 26389 V70.0 [place] 401.1 272.4 274.9 786.2 Office Visit 01/16/2013 4:20p [facility] Internal Medicine Eriberto Solorzano, 65987 466.0 - [place] M.D. 401.1 Office Visit 11/14/2012 11:00a [facility] Felisa Carvalho D.O. 43179 414.01 401.1 272.4 Office Visit 12/18/2011 3:40p [facility] Internal Medicine Yeimy Whaley, N.P. 43332 465.9 - [place] Office Visit 11/11/2011 1:00p [facility] Amelia Michael, 63588 272.4 N.P. 414.01 401.1 Office Visit 07/15/2011 1:30p DO Not Use Card[facility] Marilu Rendon M.D. 05400 V70.0 382.9 780.52 V06.1 Office Visit 06/26/2011 1:00p DO Not Use [facility] Marilu Rendon M.D. 03446 486 272.4 274.9 Office Visit 11/27/2010 10:30a DO Not Use [facility] Tara Emy, 41467 465.9 M.D., FACP 601.9 Office Visit 10/01/2010 11:30a [facility] Qutaybeh S. Maghaydah, 87321 414.00 M.D. 401.1 272.4 Office Visit 04/07/2010 1:15p DO Not Use [facility] Yeimy Whaley, 76633 724.4 N.P. 720.2 Office Visit 07/18/2009 1:30p [facility] Qutaybeh S. Maghaydah, 81057 414.00 M.D. 401.1 Office Visit 03/05/2009 1:30p DO Not Use [facility] Tara Emy, 40406 380.10 M.D., FACP 274.9 Office Visit 02/26/2009 9:15a DO Not Use [facility] Tara Emy, 23899 414.00 M.D., FACP 380.4 Office Visit 02/11/2009 11:45a DO Not Use [facility] Tara Emy, 99511 380.10 M.D., FACP 380.4 Office Visit 01/31/2009 9:15a DO Not Use [facility] Tara Quevedo, 04691 V70.0 M.D., FACP 414.00 274.9 401.1 719.41 Office Visit 09/21/2008 11:45a DO Not Use [facility] Tara Quevedo M.D., 68871 466.0 FACP Office Visit 12/21/2007 11:30a DO Not Use [facility] Tara Quevedo M.D., 41810 786.2 FACP Office Visit 11/29/2007 2:30p DO Not Use [facility] Tara Quevedo M.D., 70894 786.2 FACP Office Visit 11/07/2007 11:45a DO Not Use [facility] Tara Quevedo M.D., 59091 786.2 FACP Office Visit 10/27/2007 9:45a DO Not Use [facility] Tara Quevedo M.D., 77174 786.2 FACP Office Visit 01/28/2007 2:45p DO Not Use [facility] Yeimy Whaley, 41989 461.9 N.P. 466.0 Office Visit 01/20/2007 10:15a DO Not Use [facility] Yeimy Judd, N.P. 16882 462 465.9 Office Visit 10/28/2006 10:30a [facility] MarisaSantana Fernandez, 83365 414.01 M.D. 401.1 272.4 V45.82 Office Visit 07/08/2006 4:00p DO Not Use [facility] Tararay Quevedo, 24766 414.00 M.D., FACP 274.9 Office Visit 05/17/2006 2:30p DO Not Use [facility] Tararay Quevedo, 27013 729.5 M.D., FACP Plan of Care Future Appointment(s):12/27/2017 1:00 pm - Robert Mckay M.D. at [facility]02/22/2018 2:40 pm - Aimee Schaffer M.D. at [facility] Internal Medicine - Pjjkplgei21/02/2018 - Robert Mckay M.D.M10.00 Idiopathic gout, unspecified siteZ79.899 Other m[facility]p (current) drug therapyFollow up:Follow up in 3 months or sooner if needed
[2017-10-10 13:08] LABS: ABS Basophils 0.1 10^3/ul (0-0.2); ABS Eosinophils 0.4 10^3/ul (0-0.6); ABS Lymphocytes 3.8 10^3/ul (1.0-4.8); ABS Neutrophils 4.4 10^3/ul (1.5-7.7); ABS Nucleated RBC 0 10^3/ul; Eosinophil % 3.8 % (0-6); Nucleated Red Blood Cells % 0
[2017-10-10] MEDS ORDERED: nitroGLYCERIN DRIP* 25,000 MCG/250 ML BTL ONE (13:15)
[2017-10-10] MEDS ORDERED: VERAPAMIL 2.5 MG/ML 4 ML VIAL ONE (13:15)
[2017-10-10] MEDS ORDERED: Heparin 2 UNITS/ML IVPREMIX* 3,000 ML IV ONE (13:15)
[2017-10-10] MEDS ORDERED: Heparin(*) 1000 UNIT/ML 10 ML VIAL CATH LAB IV ONE (13:15)
[2017-10-10] MEDS ORDERED: fentaNYL* 50 MCG/ML 2 ML VIAL (100 MCG VIAL) ONE (13:15)
[2017-10-10] MEDS ORDERED: Midazolam* 1 MG/ML 10 ML VIAL (10 MG) ONE ×2 (13:15→14:15)
[2017-10-10 13:16] LABS: EGFR Non-African American 67.4 (>60); INR 0.86 (0.77-1.02)
[2017-10-10] MEDS ORDERED: Lidocaine 1% INJ* 10 MG/ML 30 ML SDV ONE (13:16)
[2017-10-10] MEDS ORDERED: Iohexol 350 (CONTRAST) 200 ML MDV IV ONE ×2 (13:16→14:18)
[2017-10-10] MEDS ORDERED: Morphine INJ* 2 MG/ML 1 ML SYRINGE (TWO MG - NEW SYRINGE VERSION) ONE (13:23)
[2017-10-10] MEDS ORDERED: NS 0.9% 250 ML* 246 ML with Norepinephrine VIAL* 4 MG IV SCH ×4 (14:00→21:00)
[2017-10-10] MEDS ORDERED: Norepinephrine 16MCG/ML IVPRE* 4,000 MCG/250 ML BAG IV SCH ×2 (14:00→20:00)
[2017-10-10] MEDS ORDERED: Propofol* 10 MG/ML 20 ML BTL IV PUSH ONE (14:04)
--- NOTE | 2017-10-10 14:10 | ED ---
Althea Carpio Abhishek, scribed for Milton Medina MD on 10/10/17 at 1300 . HPI Chest Pain - HPI Summary HPI Summary: This patient is a 62 year old M [facility] by with a chief complaint of chest pain since this morning (10/10/17) about 1 hour ago. The patient rates the pain 10/10 in severity. Symptoms aggravated by nothing. Symptoms alleviated by nothing. Patient reports coughing, nausea, diaphoresis, vomiting and left arm pain. A STEMI alert was given at 1255. Pertinent PMHx includes ME. Pt is very uncomfortable and we are unable to get a clear history read directly from pt. EKG monitoring showed ST depression anteriorly and inferior. - History of Current Complaint Chief Complaint: EDChestPainROMI Hx Obtained From: Patient, Family/Trailer Rental Clerk Onset/Duration: Started Hours Ago - one hour ago Timing: Lasting Hours - since 1 hour ago Initial Severity: Severe Current Severity: Severe Pain Intensity: 10 Pain Scale Used: 0-10 Numeric Chest Pain Location: Left Lateral Chest Pain Radiates: Yes Chest Pain Radiates To:: Arm - left Character: Cough, Non-Productive Associated Signs and Symptoms: Positive: Vomiting - Risk Factors AMI/ACS Risk Factors: Myocardial Infarction - Allergy/Home Medications Allergies/Adverse Reactions: Allergies Allergy/AdvReac Type Severity Reaction Status Date / Time No Known Allergies Allergy Verified 10/10/17 12:43 PMH/Surg Hx/FS Hx/Imm Hx Endocrine/Hematology History: Denies: Hx Diabetes Cardiovascular History: Reports: Hx Hypertension, Hx Myocardial Infarction, Other Cardiovascular Problems/Disorders - angioplasty 1999 Denies: Hx Pacemaker/ICD History: Denies: Hx Dialysis, Hx Renal Disease Sensory History: Denies: Hx Hearing Aid Psychiatric History: Denies: Hx Panic Disorder - Surgical History Surgery Procedure, Year, and Place: DEX FOOT/ANKLE SURGERY- 40 YRS AGO = ALL METAL REMOVED,. ANGIOPLASTY- NO STENTS. [facility] Infectious Disease History: No Infectious Disease History: Denies: Traveled Outside the [place] in Last 30 Days - Family History Known Family History: Positive: Hypertension, Other Family History: Other FHx reviewed and noncontributory - Social History Lives: With Family Alcohol Use: Occasionally Substance Use Type: Reports: None Hx Tobacco Use: No Smoking Status (MU): Never Smoked Tobacco Review of Systems Constitutional: Negative Eyes: Negative ENT: Negative Positive: Chest Pain - Left side Positive: Cough Positive: Vomiting Genitourinary: Negative Musculoskeletal: Other - Left arm pain Skin: Negative Neurological: Negative Psychological: Normal All Other Systems Reviewed And Are Negative: Yes Physical Exam - Summary Physical Exam Summary: Appearance: The patient is well-nourished in no acute distress and in no acute pain. Skin: Diaphoretic HEENT: ~The head is normocephalic and atraumatic. The pupils are equal and reactive. The conjunctivae are clear and without drainage. ~Nares are patent and without drainage. ~Mouth reveals moist mucous membranes and the throat is without erythema and exudate. ~The external ears are intact. The ear canals are patent and without drainage. The tympanic membranes are intact. Neck: the neck is supple with full range of motion and non-tender. There are no carotid bruits. ~There is no neck vein distension. Respiratory: Lungs are clear to auscultation and breath sounds are symmetrical and equal. Cardiovascular: ~There is no murmur or rub auscultated. ~~There is no peripheral edema Abdomen: The abdomen is soft and non-tender. ~There are normal bowel sounds heard in all four quadrants and there is no organomegaly palpated. Musculoskeletal: There is no back tenderness noted. ~Extremities are non-tender with full range of motion. ~There is good capillary refill. ~There is no peripheral edema or calf tenderness elicited. Neurological: Patient is alert and oriented to person, place and time. ~The patient has symmetrical motor strength in all four extremities. ~Cranial nerves are grossly intact. Deep tendon reflexes are symmetrical and equal in all four extremities. Psychiatric: obvious distress,Agitated. Triage Information Reviewed: Yes Vital Signs On Initial Exam: Initial Vitals Temp Pulse Resp BP Pulse Ox 98.4 F 55 16 148/89 99 10/10/17 12:43 10/10/17 12:43 10/10/17 12:43 10/10/17 12:43 10/10/17 12:43 Vital Signs Reviewed: Yes - [place] Coma Scale Coma Scale Total: 15 Diagnostics - Vital Signs Vital Signs Temp Pulse Resp BP Pulse Ox 10/10/17 12:43 98.4 F 55 16 148/89 99 - Laboratory Lab Results: Lab Results 10/10/17 10/10/17 10/10/17 Range/Units 12:55 12:55 12:55 WBC (3.5-10.8) 10^3/ul RBC (4.0-5.4) 10^6/ul Hgb (14.0-18.0) g/dl Hct (42-52) % MCV (80-94) fL MCH (27-31) pg MCHC (31-36) g/dl RDW (10.5-15) % Plt Count (150-450) 10^3/ul MPV (7.4-10.4) um3 Neut % (Auto) (38-83) % Lymph % (Auto) (25-47) % Hall % (Auto) (1-9) % Eos % (Auto) (0-6) % Baso % (Auto) (0-2) % Absolute Neuts (auto) (1.5-7.7) 10^3/ul Absolute Lymphs (auto) (1.0-4.8) 10^3/ul Absolute Monos (auto) (0-0.8) 10^3/ul Absolute Eos (auto) (0-0.6) 10^3/ul Absolute Basos (auto) (0-0.2) 10^3/ul Absolute Nucleated RBC 10^3/ul Nucleated RBC % INR (Anticoag Therapy) 0.86 (0.77-1.02) APTT 27.7 (26.0-36.3) seconds Sodium 136 (133-145) mmol/L Potassium 3.7 (3.5-5.0) mmol/L Chloride 104 (101-111) mmol/L Carbon Dioxide 23 (22-32) mmol/L Anion Gap 9 (2-11) mmol/L BUN 21 (6-24) mg/dL Creatinine 1.10 (0.67-1.17) mg/dL Est GFR ( Amer) 86.7 (>60) Est GFR (Non-Af Amer) 67.4 (>60) BUN/Creatinine Ratio 19.1 (8-20) Glucose 157 H (70-100) mg/dL Lactic Acid (0.5-2.0) mmol/L Calcium 9.8 (8.6-10.3) mg/dL Total Bilirubin 0.40 (0.2-1.0) mg/dL AST 24 (13-39) U/L ALT 47 (7-52) U/L Alkaline Phosphatase 93 (34-104) U/L Total Creatine Kinase 38 (10-223) U/L CK-MB (CK-2) 1.6 (0.6-6.3) ng/mL Troponin I 0.01 (<0.04) ng/mL B-Natriuretic Peptide 25 ( - 100) pg/mL Total Protein 7.0 (6.4-8.9) g/dL Albumin 4.3 (3.2-5.2) g/dL Globulin 2.7 (2-4) g/dL Albumin/Globulin Ratio 1.6 (1-3) LDL Cholesterol Direct 87 mg/dL 10/10/17 10/10/17 Range/Units 12:55 12:55 WBC 9.6 (3.5-10.8) 10^3/ul RBC 5.59 H (4.0-5.4) 10^6/ul Hgb 17.7 (14.0-18.0) g/dl Hct 51 (42-52) % MCV 90 (80-94) fL MCH 32 H (27-31) pg MCHC 35 (31-36) g/dl RDW 13 (10.5-15) % Plt Count 331 (150-450) 10^3/ul MPV 7 L (7.4-10.4) um3 Neut % (Auto) 46.0 (38-83) % Lymph % (Auto) 39.0 (25-47) % Hall % (Auto) 10.3 H (1-9) % Eos % (Auto) 3.8 (0-6) % Baso % (Auto) 0.9 (0-2) % Absolute Neuts (auto) 4.4 (1.5-7.7) 10^3/ul Absolute Lymphs (auto) 3.8 (1.0-4.8) 10^3/ul Absolute Monos (auto) 1.0 H (0-0.8) 10^3/ul Absolute Eos (auto) 0.4 (0-0.6) 10^3/ul Absolute Basos (auto) 0.1 (0-0.2) 10^3/ul Absolute Nucleated RBC 0 10^3/ul Nucleated RBC % 0 INR (Anticoag Therapy) (0.77-1.02) APTT (26.0-36.3) seconds Sodium (133-145) mmol/L Potassium (3.5-5.0) mmol/L Chloride (101-111) mmol/L Carbon Dioxide (22-32) mmol/L Anion Gap (2-11) mmol/L BUN (6-24) mg/dL Creatinine (0.67-1.17) mg/dL Est GFR ( Amer) (>60) Est GFR (Non-Af Amer) (>60) BUN/Creatinine Ratio (8-20) Glucose (70-100) mg/dL Lactic Acid 2.9 H* (0.5-2.0) mmol/L Calcium (8.6-10.3) mg/dL Total Bilirubin (0.2-1.0) mg/dL AST (13-39) U/L ALT (7-52) U/L Alkaline Phosphatase (34-104) U/L Total Creatine Kinase (10-223) U/L CK-MB (CK-2) (0.6-6.3) ng/mL Troponin I (<0.04) ng/mL B-Natriuretic Peptide ( - 100) pg/mL Total Protein (6.4-8.9) g/dL Albumin (3.2-5.2) g/dL Globulin (2-4) g/dL Albumin/Globulin Ratio (1-3) LDL Cholesterol Direct mg/dL Result Diagrams: 10/10/17 12:55 10/10/17 12:55 Lab Statement: Any lab studies that have been ordered have been reviewed, and results considered in the medical decision making process. Chest Pain Course/Dx - Course Course Of Treatment: Mr. Franklin presented with the sudden onset of midsternal chest pain, SOB, Coughing, N/V and diaphoresis. On presentation, he was in a lot af distress and not very cooperative to questioning. He was immediately placed on the monitor and I was called into the room. It was difficult to get a good ecg with him diaphoretic and uncooperative but the monitor revealed ST elevations in II and III and ST depressions in V2 so a STEMI alert was called on that basis. This was confirmed on subsequent ecg. The patient was taken to the biological lab technician in critical condition. - Diagnoses Provider Diagnoses: Acute ME, inferior wall - Critical Care Time Critical Care Time: 30-74 min Discharge - Discharge Plan Condition: Stable Disposition: ADMITTED TO [facility] The documentation as recorded by the Althea molina Abhishek accurately reflects the service I personally performed and the decisions made by me, Milton Mdeina MD.
[2017-10-10] MEDS ORDERED: Etomidate* 2 MG/ML 20 ML VIAL (40 MG) ONE (14:16)
[2017-10-10] MEDS ORDERED: Propofol* 100 ML ONE (14:18)
[2017-10-10] MEDS ORDERED: Atropine SYRINGE* 0.1 MG/ML 10 ML SYRINGE (1 MG) ONE (14:23)
[2017-10-10] MEDS ORDERED: ceFAZolin 1 GM VIAL(*) ONE (14:44)
[2017-10-10] MEDS ORDERED: Heparin 2 UNITS/ML IVPREMIX* 1,000 ML IV ONE (14:49)
[2017-10-10] MEDS ORDERED: Eptifibatide IV (Load dose)(*) 2 MG/ML 10 ml VIAL ONE (15:17)
[2017-10-10] MEDS ORDERED: Norepinephrine VIAL* 1 MG/ML 4 ML VIAL ONE (15:54)
[2017-10-10] MEDS ORDERED: DOPamine 200 MG/250 ML IVPREM* 200 MG/250 ML ML IV ONE (15:54)
[2017-10-10] MEDS ORDERED: NitroPRUSSide* 25 MG/ML 2 ML VIAL IVPB ONE (16:05)
[2017-10-10] MEDS ORDERED: Nitroglycerin TAB 0.4 MG* 0.4 MG TAB SL PRN (16:17)
[2017-10-10] MEDS ORDERED: NS 0.9% 1000 ML* 1,000 ML IV SCH (16:30)
[2017-10-10 16:37] LABS: ABS Basophils 0 10^3/ul (0-0.2); ABS Eosinophils 0.1 10^3/ul (0-0.6); ABS Lymphocytes 1.5 10^3/ul (1.0-4.8); ABS Neutrophils 15.9 10^3/ul (1.5-7.7); ABS Nucleated RBC 0 10^3/ul; Eosinophil % 0.5 % (0-6); Hematocrit 49 % (42-52); Hemoglobin 16.5 g/dl (14.0-18.0); Lymphocyte % 8.1 % (25-47); Mean Corpuscular HGB Conc 34 g/dl (31-36); Mean Corpuscular Hemoglobin 31 pg (27-31); Mean Corpuscular Volume 94 fL (80-94); Mean Platelet Volume 7 um3 (7.4-10.4); Nucleated Red Blood Cells % 0; Platelet Count 303 10^3/ul (150-450); Red Blood Count 5.25 10^6/ul (4.0-5.4); Red Cell Distribution Width 13 % (10.5-15); White Blood Count 18.6 10^3/ul (3.5-10.8)
--- NOTE | 2017-10-10 16:39 | PN ---
Progress Note - Progress Note Date of Service: 10/10/17 - ICU update Note: Pt with acute STEMI, s/p cardiac revascularization with RCA stent, was intubated for airway protection given agitation requiring Morphine and Versed. Pt currently in ICU, intubated, sedated on propofol and fentanyl for pain. Rt radial access site looks good with pulses distally Pt will remain intubated overnight with plan for extubation in am. Post cath management as per cardiology Family at bedside and were updated
[2017-10-10] MEDS ORDERED: fentaNYL PCA* 20 ML INFUSION SCH (17:00)
[2017-10-10] MEDS: Propofol* 100 ML IV SCH ×3 (17:24→23:45)
--- NOTE | 2017-10-10 17:32 | RAD ---
Indication: Shortness of breath. Single frontal view of the chest performed at 1645 hours was reviewed. Comparison is made with previous exam dated February 11, 2015. Cardiomegaly is noted. Tortuous aorta is noted. Left basilar atelectasis is present. IMPRESSION: LEFT BASILAR ATELECTASIS.
[2017-10-10 17:48] LABS: EGFR Non-African American 71.1 (>60)
[2017-10-10] MEDS: Atorvastatin* 80 MG TAB PO SCH (18:09)
[2017-10-10] MEDS: Chlorhexidine MOUTHWASH 0.12%* 15 ML UDC TOPICAL SCH ×3 (18:09→23:46)
[2017-10-10] MEDS: Ticagrelor* 90 MG TAB PO SCH (21:17)
--- NOTE | 2017-10-10 22:04 | CONS ---
CRITICAL CARE CONSULTATION REPORT: DATE OF CONSULTATION: 10/10/17 CONSULTATION REQUESTED BY: Dr. Valentin. HISTORY OF PRESENT ILLNESS: 62-year-old obese male with history of coronary artery disease status post stent in the past, hypertension, dyslipidemia, sleep apnea, who comes into the ED for evaluation of chest pain that started this morning. It lasted 1 hour prior to his presentation to the emergency room. The patient complained of pain to his left chest, 10/10 in severity radiating in to his left arm associated with coughing, nausea, diaphoresis and episode of vomiting. The patient has EKG, which showed evidence of STEMI and heart block. STEMI was called at 12:55. He had low BP in ED that responded to fluids, atropine. He was immediately taken to dental laboratory technician. While in the dental laboratory technician, the patient was agitated, restless. He has received 4 mg of Versed with continued agitation. ABC alert was called at that time. The patient was given 4 more mg of Versed and decision was made to intubate the patient to facilitate procedure. The patient did not lose his pulse. His blood pressure was stable. First attempt at intubation was unsuccessful, had esophageal intubation. Patient was briefly hypoxic. Tube was pulled out, was bagged with improvement in saturations. He was given 20mg Etomidate and second attempt at intubation was successful with help of GlideScope. ET tube positioning was confirmed with chest raise bilaterally and end tidal CO2 change and on fluoroscopy in dental laboratory technician. The patient was started subsequently on propofol drip. He was admitted to ICU postcatheterization for close monitoring. He has required 2mcg of Levophed while on Propofol with systolics in high 80`s to 90`s, which was subsequently tapered off as well. PAST MEDICAL HISTORY: 1. Coronary artery disease status post cath in the past and stent placement. 2. Hypertension. 3. Dyslipidemia. 4. Morbid obesity. 5. Moderate obstructive sleep apnea, underwent sleep study in October 2015. AHI 21.5, O2 kathrin is 75%. 6. History of colon polyp, found to have tubular adenoma with no evidence of dysplasia. PAST SURGICAL HISTORY: 1. Bilateral foot and ankle surgery 40 years ago. 2. Hernia surgery. FAMILY HISTORY: Positive for CAD and embolic stroke in brother at young age. SOCIAL HISTORY: Lives at home with his . Social alcohol intake. No drug abuse. Former smoker quit after heart attack. REVIEW OF SYSTEMS: Could not obtain secondary to intubated status. PHYSICAL EXAMINATION: General: The patient is sedated with propofol, in no apparent distress. Vital Signs: Temperature 98.4, pulse 55 beats per minute, respiratory rate set on ventilator 18 per minute, O2 sat 97% to 99%. blood pressure 125/57. HEENT: Pupils equal and reactive to light. Mucous membranes moist, large neck Mallampati class 4 airway. Respiratory: Clear to auscultation bilaterally, distant breath sounds. Cardiovascular: S1, S2 present. No murmurs, gallops, or rubs. Abdomen: Obese. Bowel sounds present. Nontender, nondistended. Musculoskeletal: Normal range of motion. Neurologic: Sedated on ventilator, moves all extremities spontaneously. LABORATORY DATA/DIAGNOSTIC STUDIES: WBC count 9.6, hemoglobin 17.7, hematocrit 51, platelet count 331. Sodium 136, potassium 3.7, chloride 104, bicarb 23, BUN 21, creatinine 1.10, glucose 157. Lactic acid elevated at 2.9. BNP 25. LFTs within normal limits. Chest X-ray pending at this time. EKG suggestive of ST elevation DC in inferior leads and complete heart block. The patient had PFTs in 2014 with no evidence of obstructive or restrictive ventilatory defect and normal diffusion capacity. IMPRESSION AND RECOMMENDATIONS: 62-year-old obese male with history of coronary artery disease, prior myocardial infarction admitted with ST elevation myocardial infarction. 1. Neuro: The patient was intubated in the dental laboratory technician for agitation, airway protection. The patient is currently sedated. Continue with propofol drip. Has been needing Propofol at 75-60, taper as tolerated. Aspiration precautions. 2. Cardiovascular: The patient with history of prior coronary artery disease, myocardial infarction, admitted with ST elevation myocardial infarction, undergoing cardiac revascularization procedure. Received Brilinta, heparin in ED. Management as per Cardiology. 3. Respiratory: The patient is intubated, on mechanical ventilator. Chest x- ray pending at this time. Will place OG for administration of p.o. meds and to start with feeds. Vent bundle ordered. Will assess possibility of extubation post procedure 4. Infectious disease: The patient with elevated lactic acid, which is likely secondary to hypotension from STEMI, will repeat lactic acid. Will hold off on antibiotics at this time. 5. Renal: The patient with history of renal insufficiency; however, with normal BUN and creatinine. The patient will have Helton placed for monitoring of urine output and also to avoid bed sores given intubated status. No electrolyte abnormalities at this time. 6. Endo: Blood glucose slightly elevated on admission. Will monitor blood glucose closely and cover with sliding scale insulin as needed 7. Hematological: White count not elevated, hemoglobin within normal limits, platelets within normal limits. DVT prophylaxis, pt on Brilinta, ASA. 8. Musculoskeletal: Bed rest for now. Supportive preventive care as ordered. Supportive PPI and heparin subcutaneous. 9. Psychosocial: The patient's and daughter were updated CRITICAL CARE TIME: 60 minutes excluding procedures. [id number]/[facility] #: [id number] MTDD
--- NOTE | 2017-10-11 00:09 | CONS ---
INTERVENTIONAL CARDIOLOGY CONSULTATION REPORT: DATE OF CONSULT: 10/10/17 HISTORY OF PRESENT ILLNESS: A 62-year-old male presenting to the ER with acute inferior wall ST elevation and complete heart block. I [facility]. He had an anterior wall infarct in 1998 , had balloon angioplasty of diagonal branch at [facility]. In 2003, he apparently had an abnormal stress test, had a cath reportedly at [facility], which revealed nonobstructive coronary disease, anterior wall hypokinesis and borderline ejection fraction. He had a stress echo most recently 03/14/15, follows with Dr. Higgins. He went for 10 minutes and 51 seconds, resting EF was 55%, he had no ischemia. Subsequent to his infarct, he stopped smoking, became vegetarian. In the past 6 to 12 months, he has become more sedentary stopping aerobic exercise. He presented to the ER with severe chest pain radiating into both arms. Even though initial blood pressure was 148/89, when I saw him in the ER his blood pressure was in the 70s systolic, ventricular rate was in the 30 to 40s with episodes of complete heart block. He responded to 2 L of saline , 2 mg of IV atropine, aspirin, Brilinta, heparin with improvement in his blood pressure and heart rate, was brought to the laborer sawmill, still complaining of severe chest pain. By the time he arrived in the laborer sawmill, he was back in sinus rhythm, first laborer sawmill noninvasive pressure was 137/80. Heart rate 83. The patient was complaining of severe discomfort and pain, was having difficulty focusing on answering questions, giving history. PAST MEDICAL HISTORY: Apparent obstructive sleep apnea, hypertension, hyperlipidemia, gout. PRE-HOSPITAL MEDICATIONS per Dr. Higgins's last note. : 1. Norvasc 5 mg daily. 2. Lipitor 20 mg daily. 3. Aspirin 81 mg daily. 4. Fish oil 1 g daily. 5. P.r.n. colchicine ALLERGIES: None to medications. FAMILY HISTORY: Per the patient without further details. His father had heart disease. 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 PHYSICAL EXAM: When seen in the ER, he was complaining of severe pain in his chest and his arms, he was diaphoretic, ashen, having difficulty focusing. His lungs were without rales or wheezes. JVP was not visible. Carotids were palpable. Cardiac exam was notable for slow rhythm without audible murmur or rub. His abdomen, positive bowel sounds, no rebound. Aorta not palpable. No bruit. Radial, femoral and pedal pulses were palpable though diminished. Extremities were cool, diaphoretic, cyanotic and dusky. Neuro: He was able to provide history but reluctantly. DIAGNOSTIC STUDIES/LAB DATA: Admission CBC was normal. BMP: Random blood sugar 157, creatinine 1.1, BNP 25, first troponin 0.01. LDL 87. Lactate 2.9. EKG at 1249 revealed sinus with acute inferolateral ST elevation infarct with up to [address] elevation, with lesser ST elevation in V4 through V6 and reciprocal ST depression in aVL, V1 through V2. He had poor R-wave progression. There is no old EKG in [facility]. EKG in [facility] from 02/17/17 shows prior septal infarct, nonspecific T-wave inversion in aVL and possibly a QS in aVF. Repeat EKG at 1257 shows a junctional rate of 42 with probably complete heart block and again marked ST elevation inferolaterally. IMPRESSION: 1. Acute inferior wall ST elevation infarct complicated by episodes of complete heart block and junctional bradycardia, hypotension. He has a history of previous anterior infarct, reportedly has "low normal prior EF," EKG shows evidence of a prior septal infarct. 2. Obstructive sleep apnea. 3. Hypertension. 4. Hyperlipidemia. 5. History of gout. RECOMMENDATION: The patient underwent emergent catheterization. [id number]/[facility] #: [id number] MTDD
[2017-10-11] MEDS: Propofol* 100 ML IV SCH ×3 (02:53→08:20)
--- NOTE | 2017-10-11 03:21 | PRO ---
PROCEDURE REPORT: DATE OF PROCEDURE: 10/10/17, 02:45 p.m. PROCEDURE PERFORMED: Endobronchial intubation. INDICATION FOR PROCEDURE: Agitation, airway protection. SURGEON: Luz Dykes MD DESCRIPTION OF PROCEDURE: Given the emergency need for intubation, informed the consent and time-out were not performed. The patient was in analytical lab technician, was restless, agitated, received Versed for sedation with continued agitation and uncooperative for procedure. The patient has received additional 4 mg of Versed. The patient was ventilated with the Ambu bag. A GlideScope was used and inserted into the oropharynx. Grade 3 to 4 view was obtained. Due to extreme agitation, ETT has slipped out and was removed. Patient was briefly hypoxic to 80`s at that time. Tube was removed and 8 Bah[place]ian endotracheal tube was then inserted after 20 mg of etomidate was given. Colorimetric change was visualized with CO2 meter. Breath sounds were heard on both lungs equally. Endotracheal tube was placed at 21 cm measured at teeth. Chest x-ray could not be obtained, however, positioning was verified with fluoro in the analytical lab technician. The patient tolerated the procedure well. [id number]/[facility] #: [id number] [facility]
[2017-10-11] MEDS: Chlorhexidine MOUTHWASH 0.12%* 15 ML UDC TOPICAL SCH ×2 (04:28→09:47)
[2017-10-11 05:44] LABS: EGFR Non-African American 79.8 (>60)
[2017-10-11] MEDS: Omeprazole CAP* 20 MG PO SCH (05:52)
--- NOTE | 2017-10-11 08:08 | RAD ---
Indication: Endotracheal tube and orogastric tube confirmation. Single frontal view of the chest performed at 0033 hours was reviewed. Comparison is made with previous exam dated October 10, 2017. No mediastinal shift is noted. Nasogastric tube appears to be in place. The tip is in the stomach. Endotracheal tube is in appropriate location. There appears to be left basilar atelectasis or infiltrate noted. IMPRESSION: NASOGASTRIC TUBE AND OROGASTRIC TUBE APPEAR TO BE IN APPROPRIATE LOCATION.
[2017-10-11] MEDS ORDERED: Perflutren Lipid Microsphere* 3 ML VIAL ONE (09:06)
[2017-10-11] MEDS: Aspirin Low Dose CHEW TAB* 81 MG PO SCH (09:47)
[2017-10-11] MEDS: Ticagrelor* 90 MG TAB PO SCH ×2 (09:47→21:23)
[2017-10-11] MEDS ORDERED: fentaNYL* 50 MCG/ML 2 ML VIAL (100 MCG VIAL) IV SLOW PU PRN (09:55)
[2017-10-11] MEDS ORDERED: fentaNYL* 50 MCG/ML 2 ML VIAL (100 MCG VIAL) ONE (09:57)
--- NOTE | 2017-10-11 11:33 | PN ---
Progress Note - Progress Note Date of Service: 10/11/17 Note: CRITICAL CARE MEDICINE Date: 10/11/17 Time: 945 SUBJECTIVE: Patient seen and examined. daughters at bedside. PHYSICAL EXAM: Vital Signs: Reviewed. Hr 70s. SBP ~100. 30%. Neurologic: awakens, but agitated and moving about. HEENT: pupils equal. Sclera anicteric. Trachea midline. Cardiovascular: S1 S2 Respiratory: little coarse but tolerable. tachypnea initially but settled with low dose fent while off prop. TV >700ml at times on cpap 07/01. Abdomen: Soft, nt. No r/g/r. Extremities: Warm. R radial site well. LABS: Reviewed. IMAGING: Reviewed. MEDICATIONS: Reviewed. ASSESSMENT: 62 M STEMI with stenting to RCA Acute hypoxic resp failure PLAN: Neurologic: stable. off propofol. f/u discomfort. Cardiovascular: Perfusing. vol status up at touch but handling. see if he can mobilize. no levo Respiratory: tolerting cpap. liberate today. f/u pulm toliet needs. Gastrointestinal: po diet later. Renal/Metabolic: lytes and fx ok. dc werner later. Infectious Disease: no abx need Hematology: stable. antiplt per cards. Endocrine: f/u needs Musculoskeletal: oob later. Psych/Social: family updated Supportive and preventative care as ordered. SUP: po later VTE prophylaxis: ambulate later. Werner catheter out later. Disposition: ICU Code Status: Full Critical Care Time: 35min D/w cards FSantana Jc DO
[2017-10-11] MEDS ORDERED: Metoprolol Tartrate TAB* 25 MG PO ONE (13:57)
[2017-10-11] MEDS ORDERED: Metoprolol Tartrate TAB* 25 MG PO SCH (14:00)
--- NOTE | 2017-10-11 16:27 | ECHO ---
Patient: PAYAM OSMAN [facility] Rec#: [id number] : 1955 Date: 10/11/2017 Age: 62y Weight: kg / NaN lbs Sex: M Room#: ICU-6 Admit Date#: 10/10/2017 Type: Inpatient Referring: Zelda Valentin MD Reading: Christian Higgins MD Superintendent Nonselling: [facility] Superintendent Nonselling: Amelia Leroy RDCS CC: Aimee Schaffer MD CC: CRISTY RODRIGUEZ Transthoracic Echocardiogram Indication: STEMI//s/p PCI BP: 112/74 HR: 82 Rhythm: NSR Findings History: STEMI with PCI to RCA 10/10/2017, CAD,ROD,HTN,HLD. Currently sedated, intubated and mechanically ventilated. Technical Comments: The study is technically limited due to patient being intubated and on a ventilator. 4 ml Definity used to enhance images. Left Ventricle: The left ventricular chamber size is normal. The estimated ejection fraction is 55-60%. Subtle relative inferior hypokinesis with hyperdynamic wall motion elsewhere. The patient was unable to perform a Valsalva maneuver. Left Atrium: The left atrial chamber size is normal. Right Ventricle: The right ventricular cavity size is normal. The right ventricular global systolic function is normal. Right Atrium: The right atrial cavity size is normal. Aortic Valve: The aortic valve is trileaflet. The aortic valve leaflets are mildly thickened. There is no evidence of aortic regurgitation. There is no evidence of aortic stenosis. Mitral Valve: The mitral valve leaflets appear normal. There is mild mitral regurgitation. There is no evidence of mitral stenosis. Tricuspid Valve: The tricuspid valve leaflets are normal. There is no evidence of tricuspid valve regurgitation. Unable to estimate the right ventricular systolic pressure. Pulmonic Valve: The pulmonic valve appears normal in structure and function. There is no evidence of pulmonic regurgitation. There is no pulmonic stenosis. Pericardium: The pericardium appears normal. Aorta: There is no dilatation of the ascending aorta. The aortic arch is not well visualized. There is mild dilatation of the aortic root. Pulmonary Artery: The main pulmonary artery appears normal. Venous: The venous system is not well visualized. Contrast: Definity was used to optimize study. A total of 4 ml utilized. Intravenous contrast was used to enhance endocardial border definition. Summary: There was not any prior study for comparison. Conclusions The study is technically suboptimal images due to patient being intubated and on a ventilator. The apical views were best. The left ventricular chamber size is normal. The estimated ejection fraction is 55-60%. Subtle relative inferior hypokinesis with hyperdynamic wall motion elsewhere. There is mild mitral regurgitation. There is mild dilatation of the aortic root. Measurements Name Value Normal Range RVIDd (AP) 2D 2.7 cm (0.9 - 2.6) RVDdMajor (2D) 2.8 cm (2.2 - 4.4) RAd ISD 4CH 4.3 cm (3.4 - 4.9) RA (A4C)W 3.2 cm (2.9 - 4.6) IVSd (2D) 0.9 cm (0.6 - 1) LVPWd (2D) 1 cm (0.6 - 1) LVIDd (2D) 4 cm (3.6 - 5.4) LVIDs (2D) 2 cm - LV FS (2D) 49 % (25 - 45) Aortic Annulus 2 cm (1.4 - 2.6) Ao root diameter (2D) 3.7 cm (2.1 - 3.5) Ascending Ao 3.2 cm (2.1 - 3.4) LA dimension (AP) 2D 3.5 cm (2.3 - 3.8) LAd ISD 4CH 4.7 cm (2.9 - 5.3) LA ISD 4CH W 3 cm (2.5 - 4.5) Name Value Normal Range LA ESV SP 4CH (A/L) 29 ml - LA ESV SP 2CH (A/L) 36 ml - LA ESV BP (A/L) 33 ml - LA ESV BP (A/L) index 15.8 ml/m2 - LA ESV SP 4CH (MOD) 27 ml - LA ESV SP 2CH (MOD) 35 ml - Name Value Normal Range MV E-wave Vmax 1 m/sec - MV deceleration time 165 msec - MV A-wave Vmax 1 m/sec - MV E:A ratio 0.94 ratio - LV septal e' Vmax 0.06 m/sec - LV lateral e' Vmax 0.08 m/sec - LV E:e' septal ratio 16.67 ratio - LV E:e' lateral ratio 12.5 ratio - Name Value Normal Range AV Vmax 1.5 m/sec - AV VTI 24.9 cm - AV peak gradient 8.48 mmHg - AV mean gradient 4.2 mmHg - LVOT Vmax 1.4 m/sec - LVOT VTI 24.8 cm - LVOT peak gradient 8.09 mmHg - LVOT mean gradient 3.83 mmHg - Name Value Normal Range MR Vmax 5.4 m/sec - MR VTI 160 cm - Name Value Normal Range PV Vmax 1.1 m/sec - PV peak gradient 5.22 mmHg -
[2017-10-11 17:04] LABS: ABS Basophils 0 10^3/ul (0-0.2); ABS Eosinophils 0 10^3/ul (0-0.6); ABS Lymphocytes 1.2 10^3/ul (1.0-4.8); ABS Monocytes 1.2 10^3/ul (0-0.8); ABS Neutrophils 7.4 10^3/ul (1.5-7.7); ABS Nucleated RBC 0 10^3/ul; Eosinophil % 0.2 % (0-6); Hematocrit 40 % (42-52); Hemoglobin 13.6 g/dl (14.0-18.0); Lymphocyte % 12.4 % (25-47); Mean Corpuscular HGB Conc 34 g/dl (31-36); Mean Corpuscular Hemoglobin 32 pg (27-31); Mean Corpuscular Volume 92 fL (80-94); Mean Platelet Volume 7 um3 (7.4-10.4); Nucleated Red Blood Cells % 0; Platelet Count 224 10^3/ul (150-450); Red Blood Count 4.31 10^6/ul (4.0-5.4); Red Cell Distribution Width 13 % (10.5-15); White Blood Count 9.9 10^3/ul (3.5-10.8)
[2017-10-11] MEDS: Atorvastatin* 80 MG TAB PO SCH (17:09)
[2017-10-11 17:21] LABS: EGFR Non-African American 79.8 (>60)
[2017-10-11] MEDS: Metoprolol Tartrate TAB* 25 MG PO SCH (21:19)
[2017-10-12 05:49] LABS: ABS Basophils 0 10^3/ul (0-0.2); ABS Eosinophils 0.1 10^3/ul (0-0.6); ABS Lymphocytes 1.5 10^3/ul (1.0-4.8); ABS Monocytes 1.2 10^3/ul (0-0.8); ABS Neutrophils 5.9 10^3/ul (1.5-7.7); ABS Nucleated RBC 0 10^3/ul; Eosinophil % 0.8 % (0-6); Hematocrit 39 % (42-52); Hemoglobin 13.7 g/dl (14.0-18.0); Lymphocyte % 16.9 % (25-47); Mean Corpuscular HGB Conc 35 g/dl (31-36); Mean Corpuscular Hemoglobin 32 pg (27-31); Mean Corpuscular Volume 90 fL (80-94); Mean Platelet Volume 7 um3 (7.4-10.4); Nucleated Red Blood Cells % 0; Platelet Count 219 10^3/ul (150-450); Red Blood Count 4.31 10^6/ul (4.0-5.4); Red Cell Distribution Width 13 % (10.5-15); White Blood Count 8.7 10^3/ul (3.5-10.8)
[2017-10-12] MEDS: Omeprazole CAP* 20 MG PO SCH (06:19)
[2017-10-12 06:20] LABS: EGFR Non-African American 97.3 (>60)
[2017-10-12] MEDS: Metoprolol Tartrate TAB* 25 MG PO SCH ×2 (08:23→20:39)
[2017-10-12] MEDS: Aspirin Low Dose CHEW TAB* 81 MG PO SCH (08:24)
[2017-10-12] MEDS: Ticagrelor* 90 MG TAB PO SCH ×2 (08:24→20:39)
[2017-10-12] MEDS ORDERED: Potassium Chlor TAB* 20 MEQ TAB.ER PO ONE (09:38)
[2017-10-12] MEDS ORDERED: Magnesium Sulfate 2 GM IV* 2 GM/50 ML BAG IVPB ONE (09:50)
--- NOTE | 2017-10-12 11:31 | PN ---
Progress Note - Progress Note Date of Service: 10/12/17 Note: CRITICAL CARE MEDICINE Date: 10/12/17 Time: 925 SUBJECTIVE: Patient seen and examined. daughter at bedside. PHYSICAL EXAM: Vital Signs: Reviewed. RA. HR 60s Neurologic: communicating much better. nonfocal HEENT: pupils equal. Sclera anicteric. Trachea midline. Cardiovascular: S1 S2 Respiratory: little coarse but clear. RA Abdomen: Soft, nt. No r/g/r. Extremities: Warm. R radial site well. LABS: Reviewed. IMAGING: Reviewed. MEDICATIONS: Reviewed. ASSESSMENT: 62 M STEMI with stenting to RCA Acute hypoxic resp failure - resolved HTN ROD PLAN: Neurologic: stable. Cardiovascular: Perfusing. vol status ok. HR 60s. cardiac rx adjustments per cards. Respiratory: RA. outpt f/u rod needs Gastrointestinal: po diet. Renal/Metabolic: lytes repleted. werner out. Infectious Disease: no abx need Hematology: stable. antiplt per cards. Endocrine: stable Musculoskeletal: oob and ambulate Psych/Social: family updated Supportive and preventative care as ordered. SUP: po VTE prophylaxis: ambulate Disposition: ok for floor from [facility] but defer to cards Code Status: Full Critical Care Time: 25min D/w cards FSantana Jc DO
[2017-10-12] MEDS: Atorvastatin* 80 MG TAB PO SCH (17:07)
[2017-10-13] MEDS: Omeprazole CAP* 20 MG PO SCH (05:54)
[2017-10-13 06:07] LABS: ABS Basophils 0.1 10^3/ul (0-0.2); ABS Eosinophils 0.2 10^3/ul (0-0.6); ABS Monocytes 1.3 10^3/ul (0-0.8); ABS Neutrophils 5.2 10^3/ul (1.5-7.7); ABS Nucleated RBC 0 10^3/ul; Eosinophil % 2.5 % (0-6); Hematocrit 40 % (42-52); Hemoglobin 13.6 g/dl (14.0-18.0); Lymphocyte % 23.1 % (25-47); Mean Corpuscular HGB Conc 34 g/dl (31-36); Mean Corpuscular Hemoglobin 32 pg (27-31); Mean Corpuscular Volume 92 fL (80-94); Mean Platelet Volume 7 um3 (7.4-10.4); Nucleated Red Blood Cells % 0.1; Platelet Count 208 10^3/ul (150-450); Red Blood Count 4.29 10^6/ul (4.0-5.4); Red Cell Distribution Width 13 % (10.5-15); White Blood Count 8.8 10^3/ul (3.5-10.8)
[2017-10-13 06:23] LABS: EGFR Non-African American 86.1 (>60)
[2017-10-13] MEDS ORDERED: Potassium Chlor TAB* 20 MEQ TAB.ER PO ONE (07:06)
[2017-10-13] MEDS: Ticagrelor* 90 MG TAB PO SCH ×2 (08:29→20:52)
[2017-10-13] MEDS: Aspirin Low Dose CHEW TAB* 81 MG PO SCH (08:30)
[2017-10-13] MEDS: Metoprolol Tartrate TAB* 25 MG PO SCH ×3 (08:33→20:52)
--- NOTE | 2017-10-13 10:53 | PN ---
Progress Note - Progress Note Date of Service: 10/13/17 Note: CRITICAL CARE MEDICINE Date: 10/13/17 Time: 900 SUBJECTIVE: Patient seen and examined. daughter at bedside. PHYSICAL EXAM: Vital Signs: Reviewed. RA. HR 60s Neurologic: communicating well HEENT: pupils equal. Sclera anicteric. Trachea midline. Cardiovascular: S1 S2 Respiratory: clear. RA Abdomen: Soft, nt. No r/g/r. Extremities: Warm. LABS: Reviewed. IMAGING: Reviewed. MEDICATIONS: Reviewed. ASSESSMENT: 62 M STEMI with stenting to RCA Acute hypoxic resp failure - resolved HTN ROD Deconditioning PLAN: doing well. continued rx cards f/u. still a little deconditioned and best to go to medical floor for night and see where his strength is and consider dc tomorrow if ok by cards Supportive and preventative care as ordered. SUP: po VTE prophylaxis: ambulate Disposition: ok for floor Code Status: Full Critical Care Time: 25min Kaden Jc DO
[2017-10-13] MEDS ORDERED: Acetaminophen TAB* 325 MG PO PRN (13:11)
[2017-10-13] MEDS: Allopurinol TAB* 100 MG PO SCH (15:05)
[2017-10-13] MEDS: Atorvastatin* 80 MG TAB PO SCH (16:38)
[2017-10-13] MEDS ORDERED: Lidocaine 2% VISCOUS* 15 ML UDC PO ONE (18:44)
[2017-10-14] MEDS: Allopurinol TAB* 100 MG PO SCH (08:50)
[2017-10-14] MEDS: Aspirin Low Dose CHEW TAB* 81 MG PO SCH (08:50)
[2017-10-14] MEDS: Ticagrelor* 90 MG TAB PO SCH (08:50)
[2017-10-14] MEDS: Metoprolol Tartrate TAB* 25 MG PO SCH (08:55)
[2017-10-14] MEDS ORDERED: Metoprolol Tartrate TAB* 25 MG PO SCH (08:55)
--- NOTE | 2017-10-14 11:17 | PN ---
Progress Note - Progress Note Date of Service: 10/14/17 Note: Time spent on discharge 45 minutes.
[2017-10-14 11:43] VITALS: BP 114/63
--- NOTE | 2017-10-14 20:50 | DS ---
CC: Dr. Schaffer; Dr. Hutchinson * DISCHARGE SUMMARY: DATE OF ADMISSION: 10/10/17 DATE OF DISCHARGE: 10/14/17 HISTORY: This 62-year-old man presented with chest pain. 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 The patient underwent emergent cardiac catheterization. The patient had stenting to the right coronary artery. His troponin peaked at 24. He required intubation during the catheterization, but was not intubated for a very long time. His respiratory status was quite stable thereafter. Rather surprisingly, his transthoracic echocardiogram showed an estimated ejection fraction of 55% to 60%. There was subtle inferior hypokinesis with hyperdynamic wall motion. The study was technically suboptimal as the patient was still on the ventilator at the time of the echo. DISCHARGE DIAGNOSES: 1. Acute ST elevation inferior myocardial infarction. 2. Hypertension. 3. Gout. DISCHARGE MEDICATIONS: 1. Aspirin 81 mg daily. 2. Atorvastatin 80 mg daily at 5 p.m. 3. Metoprolol 12.5 mg b.i.d. 4. Nitroglycerin 0.4 mg sublingual every 5 minutes p.r.n. 5. Ticagrelor 90 mg b.i.d. 6. Colchicine 0.6 mg daily p.r.n. 7. Allopurinol 200 mg daily. 8. Fish oil 1 capsule daily. [id number]/[facility] #: [id number] MTDD
== END 2017-10-14 12:31 | disposition home or self-care (01) | DRG 246 ==
LOC: ED 12:41 → CHICATH 13:26 → ICU 16:19 → MEDTELE 10-13 10:22
PROVIDERS: ADMIT Internal Medicine Critical Care Medicine; ATTEND Internal Medicine
PROC: 027034Z Dilation of Coronary Artery, One Artery with Drug-eluting Intraluminal Device, Percutaneous Approach (ICD-10-PCS; 2017-10-10)
PROC: 5A1945Z Respiratory Ventilation, 24-96 Consecutive Hours (ICD-10-PCS; 2017-10-10)
PROC: B2111ZZ Fluoroscopy of Multiple Coronary Arteries using Low Osmolar Contrast (ICD-10-PCS; 2017-10-10)
PROC: 4A023N7 Measurement of Cardiac Sampling and Pressure, Left Heart, Percutaneous Approach (ICD-10-PCS; 2017-10-10)
PROC: 0BH17EZ Insertion of Endotracheal Airway into Trachea, Via Natural or Artificial Opening (ICD-10-PCS; principal; 2017-10-10 13:30)
DX: I21.19 ST elevation (STEMI) myocardial infarction involving other coronary artery of inferior wall (principal); J96.01 Acute respiratory failure with hypoxia; I44.2 Atrioventricular block, complete; I95.9 Hypotension, unspecified; E66.01 Morbid (severe) obesity due to excess calories; I25.10 Atherosclerotic heart disease of native coronary artery without angina pectoris; I10 Essential (primary) hypertension; M10.9 Gout, unspecified; R40.2412 Glasgow coma scale score 13-15, at arrival to emergency department; R00.1 Bradycardia, unspecified; G47.33 Obstructive sleep apnea (adult) (pediatric); E78.5 Hyperlipidemia, unspecified; R45.1 Restlessness and agitation; I25.2 Old myocardial infarction; Z79.82 Long term (current) use of aspirin; Z79.02 Long term (current) use of antithrombotics/antiplatelets; Z98.61 Coronary angioplasty status; Z82.49 Family history of ischemic heart disease and other diseases of the circulatory system; Z72.89 Other problems related to lifestyle; Z68.26 Body mass index [BMI] 26.0-26.9, adult; Z86.010 Personal history of colon polyps; Z87.891 Personal history of nicotine dependence
CPT/HCPCS: 36415; 36600; 71045; 80048; 80053; 80061; 82550; 82553; 82803; 83605; 83721; 83735; 83880; 84100; 84443; 84484; 85025; 85610; 85730; 86141; 87641; 93005; 93306; 93308; 94002; 94760; 99156; 99157; 99285; A9270-GY; C1725; C1769; C1876; C1887; C8929; C9606-RC; J0461; J0690; J1265; J1327; J1644; J2250; J2270; J2405; J2704; J3010; J3475

== ENCOUNTER 2018-04-18 06:25 | Day surgery (SDC) | payer OTHER ==
[~2018-04-18 06:25] MED LIST: Buffered Lidocaine 0.9% SYRIN* 5 ML/SYR SYRINGE INTRADERM ONE
[2018-04-18] MEDS ORDERED: Midazolam* 1 MG/ML 2 ML VIAL (2 MG) ONE (07:16)
[2018-04-18 08:12] VITALS: BP 109/65
[2018-04-18] MEDS ORDERED: Ketorolac 0.5% OPHTH (NF) 0.5 % 5 ML BTL ONE (12:41)
[2018-04-18] MEDS ORDERED: acetaZOLAMIDE TAB* 250 MG ONE (12:41)
[2018-04-18] MEDS ORDERED: Phenylephrine 2.5% OPTH.SOL* 2 ML BTL ONE (12:41)
[2018-04-18] MEDS ORDERED: Neomycin/Polymy/Dex OPHTH.OIN* 3.5 GM ONE (12:41)
[2018-04-18] MEDS ORDERED: Lidocaine 1%* 5 ML VIAL ONE (12:41)
[2018-04-18] MEDS ORDERED: Tetracaine 0.5% OPTH.SOL 4 ML* 1 DROP BTL ONE (12:41)
[2018-04-18] MEDS ORDERED: Povidone Iodine 5% OPTH* 30 ML BTL ONE (12:41)
[2018-04-18] MEDS ORDERED: Tropicamide 1% OPTH.SOL* BTL ONE (12:41)
[2018-04-18] MEDS ORDERED: Cyclopentolate 1% OPTH.SOL* 2 ML BTL ONE (12:41)
--- NOTE | 2018-04-18 23:27 | OP ---
DATE OF OPERATION: 04/18/18 - [facility] DATE OF : 51 SURGEON: Syed Quintero MD ANESTHESIA: Monitored anesthesia care. PRE-OP DIAGNOSIS: Cataract, right eye. POST-OP DIAGNOSIS: Cataract, right eye. PROCEDURE PERFORMED: Extracapsular cataract extraction of the right eye with intraocular lens implant. IMPLANTS: SN60WF 24.5 diopter lens to the right eye. COMPLICATIONS: None. DESCRIPTION OF PROCEDURE: The patient was given phenylephrine 2.5% and cyclopentolate 1% eye drops to the operative eye in the preoperative area. The patient was taken to the operating room where a time-out was taken to identify the correct patient, site, and side of the surgery. The patient's right eye was prepped and draped in the usual sterile fashion with 5% Betadine. A second time- out was taken to verify the correct patient, site, side of the surgery, and correct lens implant. A lid speculum was placed to the right eye. A 1-mm paracentesis blade was used to make a clear corneal incision in the superotemporal position. Preservative-free 1% lidocaine was injected into the anterior chamber. DisCoVisc was then injected into the anterior chamber. A 2.75-mm keratome blade was used to make a triplanar incision at the inferotemporal position. A cystotome initiated a capsulorrhexis, which was completed with Utrata forceps in a continuous and curvilinear manner. Hydrodissection of the lens was performed with BSS on a cannula. The lens could be spun in the capsular bag. The phacoemulsification handpiece was used with a divide and conquer technique to remove the nucleus with 17.13 CDE. The I /A handpiece then removed the residual cortical lens material. DisCoVisc was injected to inflate the capsular bag. The planned SN60WF 24.5 diopter lens was injected into the capsular bag. The residual DisCoVisc was removed from the eye with the I/A handpiece. The corneal incisions were hydrated and no leaks occurred at physiologic pressure around 20 mmHg per palpation. The lid speculum was removed and drapes removed. Maxitrol ointment was placed on the surface of the operative eye. An adhesive patch and shield were then placed on the operative eye. The patient was taken to the postoperative area in stable condition. [id number]/[facility] #: [id number] MTDAugusto
== END 2018-04-18 08:32 | disposition home or self-care (01) ==
LOC: OREAST 06:25
PROVIDERS: ATTEND Student in an Organized Health Care Education/Training Program
DX: H25.11 Age-related nuclear cataract, right eye (principal); E78.5 Hyperlipidemia, unspecified; I10 Essential (primary) hypertension; I25.10 Atherosclerotic heart disease of native coronary artery without angina pectoris; J44.9 Chronic obstructive pulmonary disease, unspecified; G47.33 Obstructive sleep apnea (adult) (pediatric); I25.2 Old myocardial infarction; Z95.5 Presence of coronary angioplasty implant and graft
CPT/HCPCS: A9270-GY; J2250; V2632

== ENCOUNTER 2018-04-25 11:46 | Day surgery (SDC) | payer OTHER ==
[~2018-04-25 11:46] MED LIST changes: +Acetaminophen TAB* 325 MG PO PRN
[2018-04-25] MEDS ORDERED: fentaNYL* 50 MCG/ML 2 ML VIAL (100 MCG VIAL) ONE (12:22)
[2018-04-25] MEDS ORDERED: Midazolam* 1 MG/ML 2 ML VIAL (2 MG) ONE (12:22)
[2018-04-25] MEDS ORDERED: Tetracaine 0.5% OPTH.SOL 4 ML* 1 DROP BTL ONE (14:11)
[2018-04-25] MEDS ORDERED: acetaZOLAMIDE TAB* 250 MG ONE (14:11)
[2018-04-25] MEDS ORDERED: Tropicamide 1% OPTH.SOL* BTL ONE (14:11)
[2018-04-25] MEDS ORDERED: Cyclopentolate 1% OPTH.SOL* 2 ML BTL ONE (14:11)
[2018-04-25] MEDS ORDERED: Povidone Iodine 5% OPTH* 30 ML BTL ONE (14:11)
[2018-04-25] MEDS ORDERED: Ketorolac 0.5% OPHTH (NF) 0.5 % 5 ML BTL ONE (14:11)
[2018-04-25] MEDS ORDERED: Phenylephrine 2.5% OPTH.SOL* 2 ML BTL ONE (14:11)
[2018-04-25] MEDS ORDERED: Lidocaine 1%* 5 ML VIAL ONE (14:11)
[2018-04-25] MEDS ORDERED: Neomycin/Polymy/Dex OPHTH.OIN* 3.5 GM ONE (14:11)
[2018-04-25 14:29] VITALS: BP 118/73
--- NOTE | 2018-04-26 11:44 | OP ---
DATE OF OPERATION: 04/25/18 - [facility] DATE OF : 51 SURGEON: Syed Quintero MD ANESTHESIA: Monitored anesthesia care. PRE-OP DIAGNOSIS: Cataract, left eye. POST-OP DIAGNOSIS: Cataract, left eye. OPERATIVE PROCEDURE: Extracapsular cataract extraction of the left eye with intraocular lens implant. IMPLANTS: SN60WF 23.0 diopter lens to the left eye. COMPLICATIONS: None. DESCRIPTION OF PROCEDURE: The patient was given phenylephrine 2.5% and cyclopentolate 1% eye drops to the operative eye in the preoperative area. The patient was taken to the operating room where a time-out was taken to identify the correct patient, site, and side of surgery. The patient's left eye was prepped and draped in the usual sterile fashion with 5% Betadine. A second time -out was taken to verify the correct patient, side, and site of surgery, and correct lens implant. A lid speculum was placed to the left eye. A 1 mm paracentesis blade was used to make a clear corneal incision in the inferotemporal position. Preservative-free 1% lidocaine was injected into the anterior chamber. DisCoVisc was then injected into the anterior chamber. A 2.75 mm keratome blade was used to make a triplanar incision at the superotemporal position. A cystotome initiated a capsulorrhexis, which was completed with Utrata forceps in a continuous and curvilinear manner. Hydrodissection of the lens was performed with BSS on a cannula. The lens could be spun in a capsular bag. The phacoemulsification handpiece was used with a divide- and-conquer technique to remove the nucleus with 17.17 CDE. The I/A handpiece then removed the residual cortical lens material. DisCoVisc was injected to inflate the capsular bag. The planned SN60WF 23.0 Diopter lens was injected into the capsular bag. The residual DisCoVisc was removed from the eye with the I/A handpiece. The corneal incisions were hydrated and no leaks occurred at physiologic pressure around 20 mmHg per palpation. The lid speculum was removed and drapes removed. Maxitrol ointment was placed to the surface of the operative eye. An adhesive patch and shield was then placed on the operative eye. The patient was taken to the postoperative area in stable condition. [id number]/[facility] #: [id number] YESENIA
== END 2018-04-25 14:34 | disposition home or self-care (01) ==
LOC: OREAST 11:46
PROVIDERS: ATTEND Student in an Organized Health Care Education/Training Program
DX: H25.12 Age-related nuclear cataract, left eye (principal); Z87.891 Personal history of nicotine dependence; G47.33 Obstructive sleep apnea (adult) (pediatric); I25.2 Old myocardial infarction; J44.9 Chronic obstructive pulmonary disease, unspecified; I10 Essential (primary) hypertension; I25.10 Atherosclerotic heart disease of native coronary artery without angina pectoris; M10.9 Gout, unspecified
CPT/HCPCS: A9270-GY; J2250; J3010; V2632